=== PATIENT | male | born 1955 | race Caucasian/White ===

== ENCOUNTER 2017-09-17 18:31 | Emergency (ER) | payer OTHER ==
[~2017-09-17] VITALS: Ht 182.9 cm; Wt 65.8 kg
--- NOTE | ~2017-09-17 | EKG ---
[place] [address] [facility] [place] [address] ELECTROCARDIOGRAM REPORT Name: JOVANA VELEZ Room #: [facility]#: [id number] Admission: 09/17/17 Attend Phys: Discharge: Date of : 57 Report #: [id number] THIS REPORT FOR: //name// [facility] ED Test Date: 2017-09-17 Test Time: 18:49:27 Pat Name: JOVANA VELEZ Department: Room: Gender: Director Of Guidance: RAJAT : 1955 Requested By: Tala Braga Order Number: [id number] MD: Terrance Conklin Measurements Intervals [place] Rate: 76 P: 5 ME: 177 QRS: 22 QRSD: 106 T: 63 QT: 411 QTc: 463 Interpretive Statements Sinus rhythm Early R-wave progression No previous ECG available for comparison Electronically Signed On 09-18-2017 14:28:52 SHOE STICKS REPAIRER by Terrance Conklin [email or web address] <ELECTRONICALLY SIGNED> By: Terrance Conklin MD, [facility] 09/18/17 1428 1849 1849 Terrance Conklin MD, FACC /EPI
[2017-09-17 18:32] VITALS: BP 130/79
[2017-09-17 19:21] LABS: HEMATOCRIT 37.9 % (42.0-52.0); HEMOGLOBIN 12.7 gm/dL (14.0-18.0); MCH 28.1 pg (26.0-34.0); MCHC 33.5 g/dL (28.0-37.0); RBC 4.51 mil/uL (4.50-6.00); RDW 17.1 % (10.5-14.5); WBC 10.5 thou/uL (4.0-11.0)
[2017-09-17 19:28] LABS: ANION GAP 14 mmol/L (7-16); BUN 6 mg/dL (7-18); CALCIUM 9.2 mg/dL (8.5-10.1); CHLORIDE 106 mmol/L (98-107); CO2 22 mmol/L (21-32); CREATININE 0.6 mg/dL (0.7-1.3); GLUCOSE 92 mg/dL (74-106); POTASSIUM 4.2 mmol/L (3.5-5.1); SODIUM 142 mmol/L (136-145)
[2017-09-17 19:36] LABS: ALBUMIN 3.6 g/dL (3.4-5.0); SGOT 38 U/L (15-37); SGPT 24 U/L (30-65); TOTAL BILIRUBIN 0.6 mg/dL (<0.1-1.0); TOTAL PROTEIN 6.8 g/dL (6.4-8.2); TROPONIN-I < 0.04 ng/mL (<0.06)
[2017-09-17 20:01] LABS: ABSOLUTE NEUTROPHILS 3.8 thou/uL (1.4-8.2); ANISOCYTOSIS 1+; ATYPICAL LYMPHS 4 %
[2017-09-17 20:02] LABS: PLATELET COUNT ND thou/uL (150-400)
[2017-09-18 02:18] LABS: AMP/METHAMP Negative (Negative); BARBITURATES Negative (Negative); BENZODIAZEPINES Negative (Negative); COCAINE Negative (Negative); METHADONE Negative (Negative); OPIATES Negative (Negative); PCP Negative (Negative)
[2017-09-18 10:39] LABS: URINE BILIRUBIN NEGATIVE (Negative); URINE BLOOD TRACE (Negative); URINE CLARITY TURBID; URINE COLOR YELLOW; URINE GLUCOSE-RANDOM* NEGATIVE (Negative); URINE KETONES NEGATIVE (Negative); URINE LEUKOCYTES NEGATIVE (Negative); URINE NITRITE POSITIVE (Negative); URINE PROTEIN (DIPSTICK) TRACE (Negative); URINE SPECIFIC GRAVITY >= 1.030 (1.005-1.035); URINE UROBILINOGEN 0.2 E.U./dl (0.2-1.0)
[2017-09-18 10:40] LABS: AMORPHOUS URATES Many /LPF (None Seen)
[2017-09-18 10:41] LABS: BACTERIA 1-9 Few /HPF (None Seen); CASTS None Seen /LPF (None Seen); CRYSTALS None Seen /LPF (None Seen); SQUAMOUS 0-3 Few /LPF (0-3); URINE RBC 0-2 Rare /HPF (0-2); URINE WBC 0-5 Rare /HPF (0-5)
[2017-09-18] MEDS ORDERED: KEPPRA 500 MG500 M1 PO (14:10)
[2017-09-18] MEDS ORDERED: PRILOSEC 20 MG20 MG PO (14:11)
[2017-09-18] MEDS ORDERED: NEURONTIN 300300 M1 PO (14:11)
[2017-09-18 20:05] VITALS: BP 125/72
== END 2017-09-18 20:06 | disposition short-term general hospital (02) ==
LOC: ER 18:31 → EROBS 09-18 17:23 → ER 09-18 17:23
PROVIDERS: Emergency Medicine; Nurse Practitioner Family
DX: R45.851 Suicidal ideations (principal); N39.0 Urinary tract infection, site not specified; Z88.8 Allergy status to other drugs, medicaments and biological substances

== ENCOUNTER 2018-02-06 13:08 | Emergency (ER) | payer OTHER ==
[~2018-02-06] VITALS: Ht 185.4 cm; Wt 66.7 kg
--- NOTE | ~2018-02-06 | EKG ---
[address] [address] ELECTROCARDIOGRAM REPORT Name: JOVANA VELEZ Room #: [facility]#: [id number] Admission: 02/06/18 Attend Phys: Discharge: Date of : 57 Report #: [id number] THIS REPORT FOR: //name// [facility] ED Test Date: 2018-02-06 Test Time: 13:26:22 Pat Name: JOVANA VELEZ Department: Room: Gender: Recep: TSTORCK : 1955 Requested By: Rhoda Hilliard Order Number: [id number] MD: Yoandy Hagan Measurements Intervals [place] Rate: 56 P: 36 PA: 152 QRS: 36 QRSD: 117 T: 59 QT: 468 QTc: 452 Interpretive Statements Sinus rhythm Nonspecific intraventricular conduction delay Compared to ECG 09/17/2017 18:49:27 Intraventricular conduction delay now present Electronically Signed On 02-06-2018 15:47:26 CDT by Yoandy Hagan [email or web address] <ELECTRONICALLY SIGNED> By: Yoandy Hagan MD 02/06/18 1547 1326 1326 Yoandy Hagan MD /STAS
[~2018-02-06 13:08] MED LIST: KEPPRA 500 MG500 M1 PO; NEURONTIN 300300 M1 PO; PRILOSEC 20 MG20 MG PO
[2018-02-06 14:35] LABS: HEMOGLOBIN 11.5 gm/dL (14.0-18.0); MCH 25.4 pg (26.0-34.0); MCV 79.4 fL (80.0-100.0); PLATELET COUNT 295 thou/uL (150-400); RBC 4.53 mil/uL (4.50-6.00); RDW 22.6 % (10.5-14.5); WBC 7.2 thou/uL (4.0-11.0)
[2018-02-06 14:47] LABS: ANION GAP 10 mmol/L (7-16); BUN 11 mg/dL (7-18); CALCIUM 8.3 mg/dL (8.5-10.1); CHLORIDE 104 mmol/L (98-107); CO2 24 mmol/L (21-32); CREATININE 0.7 mg/dL (0.7-1.3); GLUCOSE 119 mg/dL (74-106); POTASSIUM 3.9 mmol/L (3.5-5.1); SODIUM 138 mmol/L (136-145)
[2018-02-06 14:49] LABS: ABSOLUTE NEUTROPHILS 3.4 thou/uL (1.4-8.2); ANISOCYTOSIS 2+; OVALOCYTES FEW
[2018-02-06 14:50] LABS: ALBUMIN 3.4 g/dL (3.4-5.0); DIRECT BILIRUBIN 0.3 mg/dL (<0.1-0.3); MAGNESIUM 1.8 mg/dL (1.8-2.4); TOTAL PROTEIN 6.9 g/dL (6.4-8.2)
[2018-02-06 14:55] LABS: TROPONIN-I < 0.04 ng/mL (<0.06)
[2018-02-06 16:03] LABS: URINE BLOOD NEGATIVE (Negative); URINE CLARITY CLEAR; URINE COLOR YELLOW; URINE GLUCOSE-RANDOM* NEGATIVE (Negative); URINE KETONES 1+ (Negative); URINE LEUKOCYTES-REFLEX NEGATIVE (Negative); URINE NITRITE-REFLEX NEGATIVE (Negative); URINE PROTEIN (DIPSTICK) NEGATIVE (Negative)
[2018-02-06 16:09] LABS: ICTOTEST (BILI CONFIRMATORY) Negative (Negative); URINE BILIRUBIN NEGATIVE (Negative)
[2018-02-06 16:10] LABS: AMP/METHAMP Negative (Negative); BARBITURATES Negative (Negative); BENZODIAZEPINES Negative (Negative); COCAINE Negative (Negative); METHADONE Negative (Negative); OPIATES Negative (Negative); PCP Negative (Negative)
[2018-02-06 18:20] VITALS: BP 123/77
== END 2018-02-06 18:20 | disposition home or self-care (01) ==
LOC: ER 13:08
PROVIDERS: Emergency Medicine
DX: F10.129 Alcohol abuse with intoxication, unspecified (principal); M54.9 Dorsalgia, unspecified; G89.29 Other chronic pain; F17.210 Nicotine dependence, cigarettes, uncomplicated; W18.30XA Fall on same level, unspecified, initial encounter; Y93.89 Activity, other specified; Y92.89 Other specified places as the place of occurrence of the external cause; Y99.8 Other external cause status

== ENCOUNTER 2018-02-28 22:22 | Emergency (ER) | payer OTHER ==
[~2018-02-28] VITALS: Ht 185.4 cm; Wt 66.7 kg
[2018-02-28] MEDS ORDERED: FOLIC ACID1 MG PO (23:15)
[2018-02-28] MEDS ORDERED: VITAMIN B-1100 M1 PO (23:16)
[2018-03-01] MEDS ORDERED: MORPHINE SULFAT15 M3 PO (00:22)
[2018-03-01 00:33] VITALS: BP 118/86
== END 2018-03-01 01:25 | disposition home or self-care (01) ==
LOC: ER 22:22
DX: S39.012A Strain of muscle, fascia and tendon of lower back, initial encounter (principal); S29.012A Strain of muscle and tendon of back wall of thorax, initial encounter; F17.210 Nicotine dependence, cigarettes, uncomplicated; Z88.8 Allergy status to other drugs, medicaments and biological substances; X58.XXXA Exposure to other specified factors, initial encounter; Y93.89 Activity, other specified; Y92.89 Other specified places as the place of occurrence of the external cause; Y99.8 Other external cause status

== ENCOUNTER 2019-10-28 06:21 | Inpatient (IN) | payer OTHER ==
[~2019-10-28] VITALS: Ht 185.4 cm; Wt 62.6 kg
--- NOTE | ~2019-10-28 | D ---
[facility] [place] [address] DISCHARGE SUMMARY Name: JOVANA VELEZ Room #: 523B-B [facility] IN M.R.#: [id number] Admission: 10/28/19 Attend Phys: Maikel Weaver DO Discharge: 10/30/19 Date of : 57 Report #: [id number] THIS REPORT FOR: cc: WALKER - Family physician unknown FAM - Family physician unknown Maikel Weaver DO ~ THIS REPORT FOR: //name// CC: Maikel CARDOSO unknown DATE OF SERVICE: 10/30/2019 INPATIENT PSYCHIATRIC DISCHARGE SUMMARY ATTENDING PSYCHIATRIST: Maikel Weaver DO GROUP EXERCISE MANAGER: Eligio Perales MD DISCHARGE DIAGNOSES: Major depressive disorder, recurrent severe by history, improved; substance use disorder for alcohol, severe, no sign of alcohol withdrawal, still in the pre-contemplation place of alcohol cessation; mild neurocognitive disorder. DISCHARGE PLAN: Discharging to his home in the [place] area. Psychiatric and general medical followup will be at the [facility]. The patient's appointments have been arranged by social work therapist as follows: 11/01/2019 at 10:00 a.m. [facility] the [facility]; 11/07/2019 at 10:[address] Perez from psychology for an appointment; 11/14/2019 at 1:00 p.m. psychiatrist appointment. DISCHARGE MEDICATIONS: Most of which were supplied by the [place], there is one change of gabapentin ____ p.o. three times a day, 30-day prescription was issued. Also, the patient ____ sucralfate 1 gram p.o. a.c. and at bedtime for chronic gastritis. The patient to continue Keppra 1500 mg p.o. b.i.d. for seizure disorder, Tamsulosin 0.4 mg p.o. daily for BPH, pantoprazole 40 mg p.o. b.i.d. for GERD, thiamine for now 100 mg p.o. daily for supplementation, Eliquis 5 mg p.o. b.i.d. for history of DVT, lipase pancreatic enzyme replacements 1 each p.o. with meals, it is called Creon, multivitamin p.o. daily, vitamin D3 at least 2000 International Units p.o. daily, folic acid 1 mg p.o. daily. PERTINENT LABORATORY DATA: This admission, CBC on 10/29/2019 shows an H and H is 11.4 and 35.5, white count 6.5, platelets 350. It just may be anemia of chronic disease; however, the patient should followup at the [place] and make sure his cancer screenings are up-to-date. Chemistries within normal limits except BUN 5, magnesium 1.7, AST 75, ALT 45, albumin 3.1, slight malnutrition. Serum [address] [address] DISCHARGE SUMMARY Name: JOVANA VELEZ Room #: 523B-B [facility] IN M.R.#: [id number] Admission: 10/28/19 Attend Phys: Maikel Weaver DO Discharge: 10/30/19 Date of : 57 Report #: [id number] alcohol level less than 10, that was 242 at [facility] for his blood alcohol level. REASON FOR ADMISSION: Sent from [facility] for concern of detox, suicidal ideation. The patient is [employer] . HOSPITAL COURSE: The patient was admitted to geriatric psychiatry unit. First, full day I saw him was morning of 10/29/2019. The patient was alert and oriented. His [facility] Mental Status Examination was 19/30. This is within range and mild cognitive impairment given his chronic drinking which he still states he drinks 2 days a week, I believe that will improve. The patient did exhibit some transient delirium during hospitalization; this was treated with p.r.n. antipsychotic. At the time of discharge, the patient was fully oriented, not suicidal or homicidal, felt to be safe for discharge to the community; however, the patient at this point will need wraparound services. Certainly if he continues to drink, he will be in danger to life threatening consequences including alcohol-related dementia. VITAL SIGNS: On the day of discharge, temperature 36.8, pulse 63, respirations 18, BP 103/60. MENTAL STATUS EXAMINATION: Ambulating with walker but kyphotic, frail appearing, still well-developed, unkempt male apparently stated age. Attention fair. Concentration fair. Speech is normal rate. Thought process linear and goal directed. Thought content, relative poverty of thought. No psychomotor agitation. Slight psychomotor retardation. Denied SI or HI. Denied hopelessness, helplessness. Denied auditory, visual, or tactile hallucinations. Memory not formally tested today, but known to be impaired. Insight limited. Judgment fair to limited. Fund of knowledge below average. PROGNOSIS: For this patient is guarded given him having mild neurocognitive disorder, alcoholism, substance use disorder for alcoholism of severe type, history of major depression, currently living single. His son is also aware of but forgot to mention that the patient received a possible eviction notice which triggered his drinking binge and his acute suicidality when he was brought to the [facility]. By: 56 13 Maikel Weaver DO /nt
[~2019-10-28 06:21] MED LIST changes: +FOLIC ACID1 MG PO; +MORPHINE SULFAT15 M3 PO; +VITAMIN B-1100 M1 PO
[2019-10-28] MEDS ORDERED: CHILDREN'S ASPI81 M1 PO (07:13)
[2019-10-28] MEDS ORDERED: IPRAT-ALBUT 0.5-3 ML IH (07:15)
[2019-10-28] MEDS ORDERED: FLOMAX0.4 MG PO (07:16)
[2019-10-28] MEDS ORDERED: LIDODERM1 EACH TOP (07:20)
[2019-10-28] MEDS ORDERED: PROTONIX40 M2 PO (07:21)
[2019-10-28] MEDS ORDERED: CARAFATE1 GM/10 ML PO (07:22)
[2019-10-28] MEDS ORDERED: LOPERAMIDE 2 MG2 M1 PO (07:23)
[2019-10-28 09:20] VITALS: BP 90/64
[2019-10-28] MEDS ORDERED: PRILOSEC OTC20 MG PO (12:05)
[2019-10-28] MEDS ORDERED: UROXATRAL PO (12:08)
[2019-10-28] MEDS ORDERED: VITAMIN B-1100 M2 PO (12:09)
[2019-10-28] MEDS ORDERED: ELIQUIS5 MG PO (12:10)
[2019-10-28] MEDS ORDERED: IBU800 MG PO (12:12)
[2019-10-28] MEDS ORDERED: CREON DR 36,001 EACH PO (12:13)
[2019-10-28] MEDS ORDERED: ATORVASTATIN CA80 MG PO (12:14)
[2019-10-28] MEDS ORDERED: SUPER THERAVIT1 EACH PO (12:15)
[2019-10-28] MEDS ORDERED: DIFICID200 MG PO (12:20)
[2019-10-28] MEDS ORDERED: FERROUS SULFAT324 M1 PO (12:22)
[2019-10-28] MEDS ORDERED: VITAMIN D31250 MC1 PO (12:24)
[2019-10-28] MEDS ORDERED: FOLIC ACID1 MG PO (12:25)
[2019-10-28] MEDS ORDERED: REVIA 50 MG TAB50 M1 PO (12:30)
[2019-10-28] MEDS ORDERED: MAGIC MOUTHWASH SWISH&SPIT (12:42)
[2019-10-28] MEDS ORDERED: LIDOCAINE VISC100 ML PO (12:45)
--- NOTE | 2019-10-28 14:35 | NUR ---
Sw met with pt to complete the intake assessment and tp. This included discussing getting help for his substance use disorder. Pt reported that this was self medicating and about his physical pain and " there is nothing wrong with my head." Pt reports that he has a cabby that takes him to [facility] and his son helps pay the bills. [facility]. He has had several attempts at AL. he would like to return home but is afrid he is going to be evicted. Pt reports that his rent was late and has asked his son to pay it and find the brink he has hidden in his apartment. Sw suggested [facility] for wrap around services. Pt erports that the [facility] was supposed to create CM for him. Sw will attempt to reach both agencies for the d/c plan. Sw will alos call and collaborte with this pt's DPOA Bc .
--- NOTE | 2019-10-28 15:43 | NUR ---
Kalli called and left a VM with Bc
--- NOTE | 2019-10-28 17:01 | NUR ---
RECIEVED PATIENT A DIRECT ADMIT FROM [facility] AT 0850 VIA EMS ON A CART. PATIENT TRANSFERED TO BED WITHOUT DIFFICULTY. 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 PATIENT STATED HE WAS DEPRESSED DUE TO RECIEVING AN EVICTION NOTICE AFTER SON FAILED TO PAY RENT. PATIENT STATES LIVING IN HIS APARTMENT X 3 YEARS AND WAS REAL DEPRESSED. PATIENT IS CALM AND COOPERATIVE. C/O CHRONIC PAIN TO RT HIP DUE TO BROKEN HIP THAT OCCURED 3 WKS AGO. ALSO STATES SLIGHT CHEST DISCOMFORT DUE HX OF ESOPHAGITIS. PATIENT DENIES SI/HI AND AVH STATES "I KNOW I DRANK TO MUCH BUT I WAS UPSET ABOUT LOOSING MY APARTMENT". LUNG SOUNDS CLEAR, BS NOTED X4, A+O X4. PATIENT STATED HAVING A SIEZURE DISORDER LAST SIEZURE WAS 1WK AGO. USES BRACE TO RIGHT FOOT WHEN USING CANE, DOES NOT NEED CANE WHEN USING WALKER. PATIENT CONCERN IS LOOSING HIS APARTMENT AND NEEDING TO FIND THE RIVERO TO HIS APARTMENT AND BILLFOLD. RIVERO FOUND IN [place]. BILLFOLD NOT FOUND. RESEARCH CALLED FOR BILLFOLD AND THEY SAID THEY DO NOT HAVE HIS BILLFOLD. PATIENT GOAL IS TO GET OUT POSSIBLY TOMORROW DUE TO HE IS GOOD AND NOT CRAZY. PATIENT VOICED BEING HUNGRY, PATIENT AMBULATED TO DAYROOM USING WALKER, YELLOW SOCKS IN PLACE. PATIENT ATE LITTLE EGGS AND HAD SOME COFFEE. PATIENT VOMITED APPROX 200CC OF BROWN COLOR FLUID. PATIENT STATES NEED TO HAVE GI COCTAIL AND MYLANTA 30 MIN BEFORE MEALS SO I DON'T VOMIT. DR PRADO HERE TO SEE PATIENT, DR REVIEWED PAPERWORK. PT DENIES HEADACHE, NO TREMORS NOTED, SLIGHT IRRITATION UPSET WITH HIS MEDS AND THAT SAY ONE THING AND DON'T FOLLOW THROUGH. DR. PRADO DIDN'T ORDER A CIWA PROTOCOL. WILL CONTINUE TO MONITOR. PT DID SAY HE WANTED TO LEAVE TOMMORROW THAT HE HAS MEDICAL ISSUES, NOT CRAZY AND DOESN'T NEED TO BE HERE.
--- NOTE | 2019-10-28 17:59 | NUR ---
1700 PATIENT REFUSED MEDS sTATES "i AM GOING HOME TOMORROW, I DO NOT HAVE A PSYCH PROBLEM". ALSO SAYS HE WILL NOT TAKE AM MEDS TOORROW. PATIENT TO ROOM USING WALKER AT THIS TIME. ATE DINER WITHOUT C/O NAUSEA OR VOMITING.
[2019-10-28 19:56] VITALS: BP 109/59
--- NOTE | 2019-10-28 21:27 | NUR ---
ASSUMED CARE AT 1915, PATIENT IS ALERT AND ORIENTED X4, UPON ONE TO ONE WITH PATIENT HE APPEARS WITH A TENSE AFFECT, CHOUDHARY LANGUAGE TOWARDS THIS NURSE. HE CONTINUOUSLY STATES ' I DONT NOT NEED TO BE HERE THIS IS FUCKING STUPID.' THIS NURSE ATTEMPTED TO DISCUSS SITUATION WITH PATIENT, UNFORTUNATELY NEEDING TO PUT STRICT LIMITATIONS ON HOW TO BE TREATED BY PATIENT AND VICE VERSA. HE SEEMLINGLY AGREED TO THESE RULES THEN STATED 'ILL JUST SHOVE MY HAND UP YOUR ASS, YOU ASSHOLE.' HE DENIES FEELINGS OF DEPRESSION, ANXIETY, SI HI. HE DID QUESTION THIS NURSE ON HOW I WAS AWARE OF PATIENTS MEDICAL HX AND APPEARED PARANOID. HE DENIED MEDICAL CONCERNS WITH NO S/S OF DISTRESS. NURSING WILL MAINTAIN ALL PRECAUTIONS TO ENSURE SAFETY AT ALL TIMES.
[2019-10-29 07:22] LABS: HEMATOCRIT 35.6 % (42.0-52.0); HEMOGLOBIN 11.4 gm/dL (14.0-18.0); MCH 27.4 pg (26.0-34.0); MCHC 32.1 g/dL (28.0-37.0); MCV 85.3 fL (80.0-100.0); RBC 4.17 mil/uL (4.50-6.00); RDW 21.9 % (10.5-14.5); WBC 6.5 thou/uL (4.0-11.0)
--- NOTE | 2019-10-29 07:30 | NUR ---
Assumed care of patient this am. Patient concerned about his scheduled times that he takes his medications. Patient voiced that he was not pleased with his care on the prior shift. Patient is very irritable. Patients affect is variable. Patient ambulates with walker. Patient takes medications crushed. Patient denies pain. Patient denies hi/si. Patients assessment shows clear breath sounds, active bowel sounds, and s1 s2 heard with auscultation.
[2019-10-29 07:56] LABS: ALBUMIN 3.1 g/dL (3.4-5.0); CREATININE 0.7 mg/dL (0.7-1.3); MAGNESIUM 1.7 mg/dL (1.8-2.4); POTASSIUM 4.4 mmol/L (3.5-5.1); TOTAL BILIRUBIN 0.5 mg/dL (<0.1-1.0); TOTAL PROTEIN 6.7 g/dL (6.4-8.2)
[2019-10-29 08:00] VITALS: BP 109/59
--- NOTE | 2019-10-29 09:29 | NUR ---
RENA called Bc kina/ROBERT [phone] and left another VM requesting a call back
--- NOTE | 2019-10-29 11:04 | NUR ---
Kalli called [facility] [phone] and left a VM for Oliver Cad Intern regarding the services this pt will need at D/C. Per treatment team meeting this pt will d/c tomorrow to home.
--- NOTE | 2019-10-29 14:51 | NUR ---
Kalli called and left another VM to Oliver West at the [facility] and reported that this pt would be discharging tomorrow to home. Kalli called and spoke with Bc and he stated that this pt still had his apartment and that he wouold be unavailable to help with transportatioon. Kalli will set this pt up with a cab voucher for tomorrow.
[2019-10-29 20:17] VITALS: BP 95/52
--- NOTE | 2019-10-30 01:48 | NUR ---
Care assumed of patient at 1915: Patient resting in bed at start of shift. Patient easily aroused. Patient easily irritable. Patient did request a cup of coffee from staff. Patient educated that it was too late to have a cup of coffee. Offered juice, milk or water. Patient argumentative and settled for a cup of water. Patient alert and oriented x4. Patient reports that he is excited about going home 10/30/19. States that he will "try" to not drink "as much". Educated patient about local AA meetings. Patient became irritable and said he could quit if he wanted to, by himself. Patient irritable about medication stating he takes Keppra at 7am and 7pm everyday and the doctors keep messing up the schedule. Educated patient that he is receiving them BID at 9am and 9pm. Patient insists that this is not correct. Multiple complaints made about the staff, doctors, medications, patients, food. Despite any education and reassurance provided, patient remains unsatisfied. Patient did take HS medication crushed with water. Patient did report pain to left upper quadrant. Provided PRN Tylenol. Patient sleeping at follow up. Patient denies SI/HI/AH/VH. No delusional or paranoia behaviors observed. Labile affect noted. Speech clear and organized. Patient was able to fall to sleep without difficulty and has been resting quietly.
[2019-10-30 07:45] VITALS: BP 103/60
[2019-10-30 08:48] VITALS: BP 103/60
--- NOTE | 2019-10-30 08:53 | NUR ---
KALLI spoke with pt and he is ready to d/c. KALLI will set up transportation with a cab voucher for 11am. Kalli spoke with Radha THAYER at the NH and the following appt are available for this pt at the [facility] clinic 11/01 at 10 am Nursing 11/07 at 10:[address] Anne Psychology phone appt 11/14 at 1PM with psychiatrict Kalli faxed the d/c summary and orders to [phone]. Kalli provided pt with these dates and times and encouraged him to keep these appts. Kalli also provided pt with the NH sucicie hotline number [phone]. Kalli reported this to Dr campbell and nursing.
[2019-10-30] MEDS ORDERED: NEURONTIN 400M400 M2 PO (09:36)
[2019-10-30] MEDS ORDERED: CARAFATE 1 GM TA1 G1 PO (09:36)
[2019-10-30 10:27] VITALS: BP 103/60
--- NOTE | 2019-10-30 11:50 | NUR ---
DISCHARGE INSTRUCTIONS REVIEWED WITH PT-HE STATES UNDERSTANDING AND DENIES QUESTIONS/CONCERNS RE MEDS AND FOLLOW UP APPOINTMENTS HE DENIES QUESTIONS. DENIES SI/SH/HI AT TIME OF DC-IRRITABLE AFFECT AT TIME OF DC REGARDING UNIT RULES AND STRUCTURE-STATES HE PLANS TO FU WITH VA-"AT LEAST THEY LET ME HAVE COFFEE WHEN I WANT IT" PERSONAL BELONGINGS SENT WELL SEVERAL BAGS OF HOME MEDS. DC VIA WC TO [facility] WITH PLANS TO RETURN HOME
== END 2019-10-30 11:10 | disposition home or self-care (01) | DRG 885 ==
LOC: SBH 06:21
PROVIDERS: Internal Medicine; ADMIT Psychiatry & Neurology Psychiatry
DX: F33.2 Major depressive disorder, recurrent severe without psychotic features (principal); F10.94 Alcohol use, unspecified with alcohol-induced mood disorder; Y90.0 Blood alcohol level of less than 20 mg/100 ml; G89.29 Other chronic pain; I10 Essential (primary) hypertension; I65.29 Occlusion and stenosis of unspecified carotid artery; M54.40 Lumbago with sciatica, unspecified side; K46.9 Unspecified abdominal hernia without obstruction or gangrene; K21.0 Gastro-esophageal reflux disease with esophagitis; F17.210 Nicotine dependence, cigarettes, uncomplicated; Z79.82 Long term (current) use of aspirin; Z79.899 Other long term (current) drug therapy
CPT/HCPCS: 10880

== ENCOUNTER 2020-05-20 02:41 | Emergency (ER) | payer OTHER ==
[~2020-05-20] VITALS: Ht 185.4 cm; Wt 63.5 kg
[~2020-05-20 02:41] MED LIST changes: +ATORVASTATIN CA80 MG PO; +CARAFATE 1 GM TA1 G1 PO; +CARAFATE1 GM/10 ML PO; +CHILDREN'S ASPI81 M1 PO; +CREON DR 36,001 EACH PO; +DIFICID200 MG PO; +ELIQUIS5 MG PO; +FERROUS SULFAT324 M1 PO; +FLOMAX0.4 MG PO; +IBU800 MG PO; +IPRAT-ALBUT 0.5-3 ML IH; +LIDOCAINE VISC100 ML PO; +LIDODERM1 EACH TOP; +LOPERAMIDE 2 MG2 M1 PO; +MAGIC MOUTHWASH SWISH&SPIT; +NEURONTIN 400M400 M2 PO; +PRILOSEC OTC20 MG PO; +PROTONIX40 M2 PO; +REVIA 50 MG TAB50 M1 PO; +SUPER THERAVIT1 EACH PO; +UROXATRAL PO; +VITAMIN B-1100 M2 PO; +VITAMIN D31250 MC1 PO
[2020-05-20 04:56] VITALS: BP 127/77
== END 2020-05-20 05:20 | disposition home or self-care (01) ==
LOC: ER 02:41
DX: R56.9 Unspecified convulsions (principal); R25.2 Cramp and spasm; K21.9 Gastro-esophageal reflux disease without esophagitis; F17.210 Nicotine dependence, cigarettes, uncomplicated; Z79.899 Other long term (current) drug therapy; Z88.8 Allergy status to other drugs, medicaments and biological substances; W19.XXXA Unspecified fall, initial encounter; Y93.89 Activity, other specified; Y92.89 Other specified places as the place of occurrence of the external cause; Y99.8 Other external cause status

== ENCOUNTER 2020-06-01 08:38 | Inpatient (IN) | payer OTHER ==
[~2020-06-01] VITALS: Ht 175.3 cm; Wt 68.0 kg
[2020-06-01 08:39] VITALS: BP 149/100
[2020-06-01 10:02] LABS: HEMATOCRIT 35.1 % (42.0-52.0); HEMOGLOBIN 11.2 gm/dL (14.0-18.0); MCH 25.6 pg (26.0-34.0); MCHC 31.9 g/dL (28.0-37.0); MCV 80.4 fL (80.0-100.0); PLATELET COUNT 289 thou/uL (150-400); RBC 4.37 mil/uL (4.50-6.00); RDW 23.9 % (10.5-14.5); WBC 12.9 thou/uL (4.0-11.0)
[2020-06-01 10:08] LABS: ANION GAP 14 mmol/L (7-16); BUN 7 mg/dL (7-18); CHLORIDE 96 mmol/L (98-107); CO2 29 mmol/L (21-32); CREATININE 0.8 mg/dL (0.7-1.3); GLUCOSE 103 mg/dL (74-106); POTASSIUM 3.2 mmol/L (3.5-5.1); SODIUM 139 mmol/L (136-145)
[2020-06-01 10:18] LABS: DIRECT BILIRUBIN 0.9 mg/dL (<0.1-0.2); LIPASE 62 U/L (73-393); SGOT 52 U/L (15-37); SGPT 23 U/L (30-65); TOTAL BILIRUBIN 3.1 mg/dL (0.2-1.0); TOTAL PROTEIN 6.9 g/dL (6.4-8.2); TROPONIN-I <0.06 ng/mL (<0.06)
[2020-06-01 11:59] LABS: ABSOLUTE NEUTROPHILS 11.7 thou/uL (1.4-8.2); OVALOCYTES FEW
[2020-06-01 12:01] LABS: ANISOCYTOSIS 2+
[2020-06-01 13:52] LABS: URINE BLOOD TRACE (Negative); URINE CLARITY CLEAR; URINE COLOR YELLOW; URINE GLUCOSE-RANDOM* NEGATIVE (Negative); URINE KETONES 1+ (Negative); URINE LEUKOCYTES-REFLEX NEGATIVE (Negative); URINE NITRITE-REFLEX NEGATIVE (Negative); URINE PROTEIN (DIPSTICK) NEGATIVE (Negative)
[2020-06-01 14:02] LABS: ICTOTEST (BILI CONFIRMATORY) Negative (Negative); URINE BILIRUBIN NEGATIVE (Negative)
[2020-06-01 14:05] VITALS: BP 136/84
[2020-06-01 15:54] VITALS: BP 110/62
[2020-06-01 16:28] VITALS: BP 117/87
[2020-06-01 17:05] VITALS: BP 133/74
--- NOTE | 2020-06-01 19:24 | NUR ---
PATIENT ARRIVED FROM ED VIA STRECHER, ALERT AND ORIENTED X4 AND FORGETFUL. ST ON THE MONITOR. ADMISSION COMPLETED, AND POC INITIATED.
[2020-06-01 20:19] VITALS: BP 127/80
--- NOTE | 2020-06-02 02:36 | NUR ---
A/O X 3.CIWA SCORE IS 9.ATIVAN GIVEN.COMPLAIN OF PAIN.MORPHINE GIVEN.PT SLEPT.MONITOR SHOWS SINUS TACHY.POC CONTINUED.
[2020-06-02 04:14] LABS: HEMATOCRIT 31.4 % (42.0-52.0); HEMOGLOBIN 10.1 gm/dL (14.0-18.0); MCH 26.6 pg (26.0-34.0); MCHC 32.1 g/dL (28.0-37.0); MCV 82.7 fL (80.0-100.0); RBC 3.79 mil/uL (4.50-6.00); RDW 23.4 % (10.5-14.5); WBC 9.6 thou/uL (4.0-11.0)
[2020-06-02 04:26] LABS: CALCIUM 7.9 mg/dL (8.5-10.1); CREATININE 0.8 mg/dL (0.7-1.3); POTASSIUM 3.5 mmol/L (3.5-5.1)
[2020-06-02 05:08] VITALS: BP 119/74
[2020-06-02 08:05] VITALS: BP 116/66
--- NOTE | 2020-06-02 08:10 | EKG ---
[facility] [place] [address] ELECTROCARDIOGRAM REPORT Name: JOVANA VELEZ Room #: 207-P ADM IN M.R.#: [id number] Admission: 06/01/20 Attend Phys: Ra De Leon MD Discharge: Date of : 57 Report #: [id number] THIS REPORT FOR: cc: [facility] - Clinic physician unknown [facility] - Clinic physician unknown Yoandy Hagan MD ~ THIS REPORT FOR: //name// [facility] ED Test Date: 2020-06-01 Test Time: 08:45:05 Pat Name: JOVANA VELEZ Department: Room: [facility] Gender: M Founder: ESHEETS : 1955 Requested By: Bernie Manning Order Number: [id number] MD: Yoandy Hagan Measurements Intervals [place] Rate: 114 P: 68 OK: 168 QRS: 35 QRSD: 96 T: 66 QT: 343 QTc: 473 Interpretive Statements Sinus tachycardia Compared to ECG 02/06/2018 13:26:22 Sinus rhythm no longer present Intraventricular conduction delay no longer present Electronically Signed On 06-02-2020 8:10:02 CDT by Yoandy Hagan [email or web address] <ELECTRONICALLY SIGNED> By: Yoandy Hagan MD 06/02/2010 Yoandy Hagan MD /EPI
[2020-06-02 11:35] VITALS: BP 125/82
[2020-06-02 15:50] VITALS: BP 112/69
--- NOTE | 2020-06-02 18:20 | NUR ---
ASSESSMENT DOCUMNETED, CIWA AT 9, MEDICATED INDICATED, AND VSS. NPO AFTER MN FOR EGD IN THE AM. AND WILL CONTINUE WITH CURRENT POC.
[2020-06-02 20:48] VITALS: BP 96/58
[2020-06-03 00:16] VITALS: BP 98/63
[2020-06-03 05:05] LABS: HEMATOCRIT 29.1 % (42.0-52.0); HEMOGLOBIN 9.4 gm/dL (14.0-18.0); MCH 26.8 pg (26.0-34.0); MCHC 32.4 g/dL (28.0-37.0); MCV 82.8 fL (80.0-100.0); RBC 3.52 mil/uL (4.50-6.00); RDW 23.4 % (10.5-14.5); WBC 6.3 thou/uL (4.0-11.0)
[2020-06-03 05:25] LABS: ALBUMIN 2.4 g/dL (3.4-5.0); CALCIUM 7.8 mg/dL (8.5-10.1); CREATININE 0.6 mg/dL (0.7-1.3); TOTAL BILIRUBIN 1.2 mg/dL (0.2-1.0); TOTAL PROTEIN 5.6 g/dL (6.4-8.2)
[2020-06-03 05:34] VITALS: BP 134/92
[2020-06-03 07:45] VITALS: BP 131/81
[2020-06-03 11:10] VITALS: BP 132/88
--- NOTE | 2020-06-03 11:29 | NUR ---
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 He has [employer] insurance he reports paramedics took him to closest hospital. He goes to [facility] in [place]. Cannot recall if PCP is Dr Jones or Dr Cabrales. patient with hx of SBU here at [facility] in Oct. Patient evaled by [facility] and accepted once stable and if rec auth. Patient agreeable to [facility] once stable.
[2020-06-03 15:50] VITALS: BP 131/98
[2020-06-03 18:06] LABS: FOLIC ACID 11.5 ng/mL (8.6-58.9)
--- NOTE | 2020-06-03 18:20 | NUR ---
RECEIVED PT'S CARE AROUND 0720; PT. ON BED; RESTING WITH EYES CLOSED; SR ON THE MONITOR; DURING AM ASSESSMENT PT. AOX4; FORGETFUL; NPO; KEPPRA GIVEN; GONE FOR PROCEDURE AROUND 0830; BACK FROM PROCEDURE AROUND 1000; PER GI PT. ABLE TO ADVANCE DIET TO HH; IV FLUIDS D/C; PRN PO PAIN MEDICATION GIVEN; EDUCATED ABOUT IT; REQUESTED THREE CUPS OF COFFEE; ST ON THE MONITOR; EDUCATED ABOUT LIMITING COFFEE; NO ANSWER BACK; DURING THE EVENING PT. SHOWED TREMORS & ST. FEELING SOME ANXIETY; PRN LORAZEPAM GIVEN; POTASSIUM REPLACED; ASSESSMENT CHARGED; FOLLOWING POC; WILL PASS ON REPORT;
[2020-06-03 20:07] VITALS: BP 115/76
--- NOTE | 2020-06-04 05:06 | NUR ---
ASSUMED CARE OF PATIENT AT 1900. SEIZURE PRECAUTIONS REMAIN IN PLACE. AT INITIAL ASSESSMENT PATIENT C/O THROAT/CHEST PAIN. ADMINISTERED PRN PAIN MEDICATION AND LORAZEPAM. RECENT CIWA SCORE WAS A 4. PATIENT ANXIOUS/RESTLESS AND DID NOT APPEAR TO SLEEP WELL THROUGH THE NOC.
[2020-06-04 05:27] VITALS: BP 128/86
[2020-06-04 08:10] VITALS: BP 130/84
[2020-06-04 11:48] VITALS: BP 102/73
--- NOTE | 2020-06-04 13:16 | NUR ---
5n cont to eval they have not accepted patient at this time. They have not sought auth at this time. Plan to review how patient does with therapy in am.
[2020-06-04 15:23] VITALS: BP 112/69
--- NOTE | 2020-06-04 16:42 | NUR ---
PT CARE ASSUMED APPROX 1000. ASSESSMENTS CHARTED. PT DENIES SOA, N/V. REPORTS ADEQUATE PAIN MANAGEMENT OF EPIGASTRIC AND RLE PAIN. VSS. PT TOLERATING POC. NO DISTRESS NOTED.
[2020-06-04 19:40] VITALS: BP 121/72
[2020-06-05 03:30] VITALS: BP 124/77
--- NOTE | 2020-06-05 04:19 | NUR ---
Assumed pt care at 1900. Pt is alert and oriented. No sign of distress noted noted in pt. Continously verbalizes pain. Fall precaution in place. Pt requesting for pain medication. Assessement completed and documented. Scheduled meds administered to pt, tolerated PO intake. No acute events overnight. No further needs at this time
[2020-06-05 07:43] VITALS: BP 121/78
--- NOTE | 2020-06-05 09:36 | NUR ---
BROKE BEATER OPERATOR SPOKE WITH [facility] MARKETING FINANCE MANAGER THIS DATE. PATIENT UNDERSTANDS 3 HOUR THERAPY REQUIREMENT AND IS HOPING THAT AUTH CAN BE OBTAINED FROM [place] FOR ACUTE REHAB ADMISSION. AUTHORIZATION REQUEST WILL BE SENT THIS DATE TO GATITO Gomes AT THE COMMUNITY CARE OFFICE OF THE [facility]. [phone] (FAX)
[2020-06-05 11:18] VITALS: BP 129/72
--- NOTE | 2020-06-05 12:07 | PATH ---
[facility] [address] [place] [address] PATHOLOGY RPT PROCEDURE Name: GIL VELEZ Room #: 207-P [facility] IN M.R.#: [id number] Admission: 06/01/20 Date of : 57 Discharge: Report #: [id number] Path Case #: [id number] [facility] Accession Number: [id number] . 01 Material submitted: . esophagus - BX'S DISTAL ESOPHAGUS. Modifiers: distal . 01 Clinician provided ICD-10: A41.9 F10.239 . 01 Clinical history: . ESOPHAGITIS AT ESOPHAGEAL MASS, SEPSIS, UNSPECIFIED ORGANISM, ALCOHOL DEPENDENCE WITH WITHDRAWAL, N/V CHEST PAIN . 02 Diagnosis: Gastroesophageal mucosa, distal esophagus, endoscopic biopsy: - Gastric fundic-type mucosa with moderate chronic inflammation along with reactive changes. - No definite intestinal metaplasia or dysplasia identified. - Focal squamous mucosa with mild active esophagitis and associated ulceration. (IUV:pit 06/04/2020) QTP 06/04/2020 1013 Local . 02 Comment: A GMS fungal special stain is ordered on block A1 and it shows no definitive fungal hyphal or yeast elements. (IUV:pit 06/04/2020) . 02 Electronically signed: . Terese Mccain MD, Pathologist NPI- [id number] . 01 Gross description: . The specimen is received in formalin, labeled "Gil Velez, biopsies distal esophagus". Received are multiple segments of pale rudolph soft tissue ranging in size from 0.2 to 0.4 cm in maximum dimensions. The specimen is submitted entirely in cassette A1. (CAA; 06/03/2020) QAC/QAC 06/03/2020 1703 Local . 02 Pathologist provided ICD-10: K20.9, K22.10 . 02 CPT . [id number], [id number] [address] [address] PATHOLOGY RPT PROCEDURE Name: GIL VELEZ Room #: 207-P [facility] IN .R.#: [id number] Admission: 06/01/20 Date of : 57 Discharge: Report #: [id number] Path Case #: [id number] Specimen Comment: A courtesy copy of this report has been sent to [phone], [phone]- Specimen Comment: [id number] Specimen Comment: Report sent to / DR MCELROY Performed at: [address], [place], [place] [id number] MD Abhinav Allen MD Phone: [phone] Performed at: [address] [id number] MD Terese Mccain MD Phone: [phone]
[2020-06-05 15:47] VITALS: BP 136/72
--- NOTE | 2020-06-05 16:22 | NUR ---
PT CARE ASSUMED APPROX 0700. ASSESSMENTS CHARTED. PT DENIES SOA, N/V. REPORTS ADEQUATE PAIN MANAGEMENT AFTER INTERVENTIONS AND POC. TOLERATING POC. NO DISTRESS NOTED. PT CARE TRANSFERRED TO ANOTHER RN AT THIS TIME. SHE DENIES QUESTIONS OR CONCERNS REGARDING PT POC.
[2020-06-05 20:55] VITALS: BP 111/70
--- NOTE | 2020-06-06 03:54 | NUR ---
Assumed pt care at 1900. Pt is alert and oriented. No sign of distress noted in pt. Pt continues to verbalize pain. Fall precaution in place. Pt had a bowel movement. Assessment completed and documented. Scheduled meds administered to pt. Tolerated PO intake. No acute events overnight. Continue to monitor patient. Anticipating discharge. No needs at this time.
[2020-06-06 04:45] VITALS: BP 154/52
[2020-06-06 08:00] VITALS: BP 111/67
[2020-06-06 11:39] VITALS: BP 106/80
[2020-06-06] MEDS ORDERED: CIPRO500 M1 PO (15:09)
[2020-06-06] MEDS ORDERED: IPRAT-ALBUT 0.5-3 ML INH (15:09)
[2020-06-06] MEDS ORDERED: FLAGYL500 M1 PO (15:09)
--- NOTE | 2020-06-06 15:54 | NUR ---
PT CARE ASSUMED APPROX 0715. ASSESSMENTS CHARTED. PT DENIES SOA, N/V. REPORTS ADEQUATE PAIN MANAGEMENT OF ESOPHAGEAL AND RLE PAIN. VSS. DISCHARGING TO REHAB THIS SHIFT. PT AGREEABLE. ATTEMPT MADE TO CALL REPORT TO RECEIVING NURSE ON REHAB UNIT. AWAITING CALL BACK FROM RN AT THIS TIME. PT DENIES QUESTIONS OR CONCERNS REGARDING POC OR TRANSFER. TELE OFF. WILL TRANSFER TIMELY.
--- NOTE | 2020-06-06 16:43 | NUR ---
REPORT WAS CALLED TO REHAB NURSE. PT ESCORTED OFF UNIT A MOMENT AGO. NO DISTRESS NOTED.
== END 2020-06-06 16:34 | DRG 871 ==
LOC: ER 08:38 → 2N 12:27 → EROBS 12:27 → 2N 16:39
PROVIDERS: Emergency Medicine; Nurse Practitioner; Nurse Practitioner Family; ADMIT Hospitalist; ATTEND Hospitalist
PROC: 0DB38ZX Excision of Lower Esophagus, Via Natural or Artificial Opening Endoscopic, Diagnostic (ICD-10-PCS; principal; 2020-06-03)
DX: A41.9 Sepsis, unspecified organism (principal); E43 Unspecified severe protein-calorie malnutrition; F10.239 Alcohol dependence with withdrawal, unspecified; K70.10 Alcoholic hepatitis without ascites; K52.89 Other specified noninfective gastroenteritis and colitis; K20.8 Other esophagitis; Z20.828 Contact with and (suspected) exposure to other viral communicable diseases; G89.29 Other chronic pain; F32.9 Major depressive disorder, single episode, unspecified; K21.9 Gastro-esophageal reflux disease without esophagitis; I10 Essential (primary) hypertension; M54.5 Low back pain; K80.20 Calculus of gallbladder without cholecystitis without obstruction; F17.210 Nicotine dependence, cigarettes, uncomplicated; G40.909 Epilepsy, unspecified, not intractable, without status epilepticus; M54.32 Sciatica, left side; K44.9 Diaphragmatic hernia without obstruction or gangrene; K29.70 Gastritis, unspecified, without bleeding; M54.10 Radiculopathy, site unspecified; Z88.8 Allergy status to other drugs, medicaments and biological substances; Z86.711 Personal history of pulmonary embolism; Z87.11 Personal history of peptic ulcer disease; Z80.0 Family history of malignant neoplasm of digestive organs; Z65.8 Other specified problems related to psychosocial circumstances; Z79.899 Other long term (current) drug therapy
CPT/HCPCS: 10081; 62110; 62900; 70005

== ENCOUNTER 2020-06-06 14:48 | Inpatient (IN) | payer OTHER ==
[~2020-06-06] VITALS: Ht 185.4 cm; Wt 66.7 kg
--- NOTE | ~2020-06-06 | PLAN ---
[facility] [place] [address] REHAB UNIT PLAN OF CARE Name: JOVANA VELEZ Room #: 504-1 ADM IN M.R.#: [id number] Admission: 06/06/20 Attend Phys: Hamilton Tello MD Discharge: Date of : 57 Report #: [id number] THIS REPORT FOR: //name// CC: Hamilton Tello [facility] unknown DATE OF SERVICE: 06/09/2020 PROGRESS NOTE/OVERALL PLAN OF CARE SUBJECTIVE: The patient is seen back today in followup. He is in no distress. Last recorded temperature is 36.8, pulse 77, respirations 20, blood pressure 111/74. He had an episode over the weekend where he was feeling weak with lower blood pressure and he was given some IV hydration. He is feeling better this morning. We are monitoring him regarding nausea. Functionally, he transfers with standby assistance and gait is contact guard 30 feet with a front-wheeled walker. In occupational therapy, lower body dressing is max assist, upper body dressing is supervision. ASSESSMENT: This is a 65-year-old white male with the following problem list: 1. Right lower extremity radiculopathy with sciatica with right lower extremity weakness. 2. Functional mobility and ADL deficits. 3. Generalized weakness and debilitation. 4. Sepsis secondary to colitis and severe esophagitis. 5. 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 6. History of ETOH withdrawal and dependence. 7. Seizure disorder. 8. History of pulmonary embolism. 9. Some decreased in blood pressure over the weekend, given IV hydration. PLAN: I encouraged him to drink regular water instead of coffee to try to help maintain his hydration status. The overall plan of care is based on the preadmission screen, post-admission physician evaluation and information garnered from therapy assessments. 1. Estimated length of stay is probably 7-10 days. 2. Medical prognosis is reasonably good. 3. Anticipated interventions includes the interdisciplinary acute inpatient rehabilitation program. 4. Anticipated functional outcomes would be for the patient to become modified independent with transfers, mobility, ADLs, so he can hopefully return back to his prior living situation. 5. Discharge destination would be back to the home setting. He does live in a motel, but has a son involved and they are looking at assisted living options as well. He does not have any stairs into the motel. 6. Expected therapy by discipline includes PT and OT 1-1/2 [place] [address] REHAB UNIT PLAN OF CARE Name: JOVANA VELEZ Room #: 504-1 ADM IN [facility]#: [id number] Admission: 06/06/20 Attend Phys: Hamilton Tello MD Discharge: Date of : 57 Report #: [id number] five days a week throughout the duration of the acute inpatient rehabilitation stay. By: [id number] [place] Tello MD /PMT
--- NOTE | ~2020-06-06 | H ---
[facility] [place] [address] HISTORY AND PHYSICAL Name: JOVANA VELEZ Room #: 504-1 ADM IN M.R.#: [id number] Admission: 06/06/20 Attend Phys: Hamilton Tello MD Discharge: Date of : 57 Report #: [id number] THIS REPORT FOR: cc: [facility] - Clinic physician unknown [facility] - Clinic physician unknown Hamilton Tello MD ~ CC: Hamilton Tello [facility] unknown DATE OF SERVICE: 06/07/2020 HISTORY AND PHYSICAL/POST ADMISSION PHYSICIAN EVALUATION HISTORY OF PRESENT ILLNESS: The patient is 65-year-old white male who was originally admitted to [facility] on 05/31/2020 with abdominal pain and diarrhea. He was admitted and found to have a lactic acid of 5.5, tachycardia, tremors, diagnosed with sepsis due to colitis. GI was consulted and he had an EGD that revealed severe esophagitis and gastritis. Biopsies were taken. He was placed on a PPI and IV Levaquin and Flagyl. He has a prior history of right lower extremity severe sciatica with weakness and pain and he has worn a Cam boot orthotic for it for the past 2 years. He also has a history of ETOH abuse and has been receiving Ativan previous to his rehabilitation admission. He has been admitted now for acute in-hospital inpatient rehabilitation. PAST MEDICAL HISTORY: Includes a seizure disorder, significant right lower extremity pain with weakness, history of ETOH abuse, pancreatitis, esophagitis, heart disease, peptic ulcer disease, pulmonary embolism, depression, and BPH. HABITS: Heavy tobacco abuse, heavy alcohol abuse. FAMILY HISTORY: Cancer, father with colon cancer. He noted both his father and his brother at age younger than what he is right now. SOCIAL HISTORY: He lives in a motel to avoid stairs. He was independent with ADLs and IADLs prior. He has had falls. He had problems with chronic numbness right foot with weakness. He has a cane and walker at home. He does have an involved son. ALLERGIES: PROPRANOLOL. REVIEW OF SYSTEMS: He was seen later yesterday. No specific complaints of chest pain, shortness of breath, abdominal discomfort, except he notes he has problems on occasion with eating and has gotten sick to his stomach with emesis. He has chronic back pain, right lower extremity pain and weakness. [address] [address] HISTORY AND PHYSICAL Name: JOVANA VELEZ Room #: [address] [place] [address] [place] [facility].#: [id number] Admission: 06/06/20 Attend Phys: Hamilton Tello MD Discharge: Date of : 57 Report #: [id number] PHYSICAL EXAMINATION: GENERAL: He was pleasant, rather verbose, no obvious distress, can be tangential. VITAL SIGNS: Last recorded temperature 98.3, pulse 92, respirations 18, and blood pressure 132/89. HEENT: Facies appeared symmetric. CHEST: Sounded clear to auscultation. CARDIOVASCULAR: Regular rate and rhythm. ABDOMEN: Bowel sounds positive, nontender. NEUROLOGICAL: He is a small statured, thin white male. He has functional range of motion of both upper extremities. Strength is a grade 4-/5. Lower extremities; functional range of motion of the left lower extremity without obvious focal weakness. Right lower extremity, he has the Cam walker boot. He was unable to flex that hip to lift the leg off the bed. So weak right hip flexors grade 2-, abduction is probably 2+, and abduction 3. He is able to extend the knee some at least 3+ to 4- and ankle dorsiflexion appeared to be more of a grade 4- in knee as well as some eversion. No calf swelling. Sensation was reasonably intact to simultaneous stimulation. He has gotten up with the therapists, has been standby assist to come to stand and ____ short distance walker ambulation. ASSESSMENT: This is a 65-year-old white male with the following problem list: 1. Right lower extremity radiculopathy with sciatica with right lower extremity weakness. 2. Functional mobility and ADL deficits. 3. Generalized weakness and debilitation. 4. Sepsis secondary to colitis and severe esophagitis. 5. 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 6. History of ETOH withdrawal and dependence. 7. Seizure disorder. 8. History of pulmonary embolism. PLAN: The patient has been admitted for acute in-hospital inpatient rehabilitation. From a postadmission physician evaluation perspective, there are no relevant changes since the preadmission screening. Please see the above review of prior and current medical and functional conditions and comorbidities. Please see the patient's previous and current functional status. As far as risk of complications, he has multiple medical comorbidities as noted above. Initial plan of care involves the interdisciplinary acute inpatient rehabilitation program. Measurable functional goals would be for the patient to become modified independent with transfers, mobility and ADLs at least with the Cam walker boot. We need to assess with appropriate gait aids. Would anticipate he will need a walker. Prognosis is reasonably good with estimated length of stay probably at least 7-10 days. Potential barriers would include his multiple medical comorbidities and decreased functional status. The patient meets diagnostic criteria for an acute in-hospital inpatient [facility] [address] [place] [address] HISTORY AND PHYSICAL Name: JOVANA VELEZ Room #: 504-1 ADM IN M.R.#: [id number] Admission: 06/06/20 Attend Phys: Hamilton Tello MD Discharge: Date of : 57 Report #: [id number] rehabilitation stay. He meets the medical necessity criteria. We will have the service consultant physicians with Internal Medicine continue to follow regarding his multiple medical comorbidities. He does have the tolerance for therapies and has appropriate discharge goals back to the home setting. By: [id number] [id number] Hamilton Tello MD /nt
[2020-06-06] MEDS ORDERED: IPRAT-ALBUT 0.5-3 ML INH (15:09)
[2020-06-06] MEDS ORDERED: FLAGYL500 M1 PO (15:09)
[2020-06-06] MEDS ORDERED: CIPRO500 M1 PO (15:09)
--- NOTE | 2020-06-06 17:31 | NUR ---
1700 PATIENT ADMITTED TO ROOM 504. PATIENT IS ALERT AND ORIENTED X4. PATIENT SPARKS. 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 LUNGS ARE CLEAR. ABD IS SOFT WITH BSX4. HAS HX OF SZ. DINNER SERVED. FALL AND SAFETY PROTOCOLS IN PLACE. DENIES PAIN. WILL GET PT/OT/ST EVALS IN A.M. CALL LIGHT IN REACH. WILL CONTINUE TO MONITER.
[2020-06-06 18:22] VITALS: BP 132/89
--- NOTE | 2020-06-07 02:13 | NUR ---
INTERESTED IN GETTING A PAIR OF SCRUB PANTS FOR DAYTIME USE, WOULD SETTLE FOR SWEAT PANTS, WILL DISCUSS WITH THERAPY THIS AM. UP TO BSC WITH STANDBY ASSIST FOR LARGE BM. NEEDS MOST PILLS CRUSHED TO BYPASS A TENDER ESOPHAGUS. PERCOCET FOR THIS NON-CARDIAC CHEST PAIN DECREASES LEVEL FROM 9 TO 4
[2020-06-07 06:45] LABS: HEMATOCRIT 29.7 % (42.0-52.0); HEMOGLOBIN 9.5 gm/dL (14.0-18.0); MCH 26.7 pg (26.0-34.0); MCV 83.6 fL (80.0-100.0); RBC 3.56 mil/uL (4.50-6.00); RDW 24.6 % (10.5-14.5); WBC 4.4 thou/uL (4.0-11.0)
[2020-06-07 07:04] LABS: CALCIUM 8.4 mg/dL (8.5-10.1); CREATININE 0.6 mg/dL (0.7-1.3); POTASSIUM 3.9 mmol/L (3.5-5.1)
[2020-06-07 08:00] VITALS: BP 93/61
--- NOTE | 2020-06-07 19:47 | NUR ---
ASSUMED CARE OF PT AT 0700. PT IS A&OX4 AND VITAL SIGNS ARE STABLE. PT REPORTS PAIN TO LOWER BACK, MANAGED WITH PO MEDICAITONS. PT USING EXPLETIVE LANGUAGE TO STAFF THROUGHOUT SHIFT. PT STATED TO CLIENT ENGAGEMENT SPECIALIST IN MORNING WHEN ENTERING ROOM TO OBTAIN VITAL SIGNS "YOU BITCHES KEEP COMING IN HER AND DOING SHIT, YOU ALL NEED TO FUCK OFF SO I CAN EAT MY FOOD." PT ASKED TO REFRAIN FROM USING LANGUAGE TOWARD STAFF AND REPLIED "FUCK OFF AND GET OVER IT". PT PROVIDED WITH SINGLE CUP OF COFFEE IN AM WITH BREAKFAST AND HAD RECEIVED 4+ CUPS OF COFFEE OVERNIGHT. INFORMED PT THAT HE IS ON A HEART HEALTHY DIET AND WOULD BE UNABLE TO OBTAIN COFFEE FOR REMAINDER OF DAY. PT STATED "YOU BITCH DONT KNOW NOTHING SO YOU CAN GO FUCK YOURSELF." PT CALLING NURSING STAFF INAPPROPRIATELY TO CONTINUE BERATING STAFF WITH FOUL LANGUAGE, DESPITE FREQUENT REMINDERS TO REFRAIN FROM BEHAVIORS. DISCUSSED CONCERNS WITH HOSPITALIST, REQUESTED THAT DR HERNANDEZ CONSULT DR PARSONS FOR AGITATION. FALL PRECAUTIONS IN PLACE AND NURSING WILL CONTINUE TO MONITOR.
[2020-06-07 20:00] VITALS: BP 108/69
[2020-06-08] VITALS (9 sets, daily range): BP systolic 87–121; BP diastolic 53–72
--- NOTE | 2020-06-08 07:37 | NUR ---
progress pt a/o x4 up with sba. vss. pt reports pain at a level of 8 to 9 in his esophagus. tolerating liquids taking meds crushed. voiding qs.
--- NOTE | 2020-06-08 18:31 | NUR ---
ASSUMED CARE OF PT AT 0700. PT IS A&OX4. PT REPORTS NON-CARDIAC CHEST PAIN, PO MEDICATIONS PROVIDED. WHILE WORKING WITH THERAPY, PT BECAME DIZZY AND EXPERIENCED NAUSEA, ZOFRAN ADMINISTERED. BP NOTED TO BE 89/53 WITH A HR 168. PT ASSISTED TO BED, PROVIDER NOTIFIED. ORDERS TO GIVE BOLUS OF NS, HOLD THERAPY, HOLD PAIN MEDS FOR LOW BP. BLOOD PRESSURES AND SYMPTOMS MONITORED DURING FLUID ADMINISTRATION. POST BOLUS BP 121/72 WITH HR 82. PAIN MEDICATION ADMINISTERED FOLLOWING BOLUS. PT REPORTS NO DIZZINESS BUT STILL HAS OCCASSIONAL FEELINGS OF NAUSEA. HH ORDERED, NO SIGNIFICANT CHANGE FROM PREVIOUS HH. DR LISA CARSON FOR F/U, NO CALL BACK AT THIS TIME. FALL PRECAUTIONS IN PLACE AND NURSING WILL CONTINUE TO MONITOR.
--- NOTE | 2020-06-09 03:46 | NUR ---
BP OF 108/62 IMMEDIATELY BEFORE PAIN MED GIVEN. ACCEPTS THAT HE WILL GET SINGLE CUP OF COFFEE THIS SHIFT NOW. INCONTINENT OF URINE ONCE THIS SHIFT. CONTINUES TO TAKE PILLS GROUND WITH WATER ONLY, KEPPRA IS NOW GIVEN LIQUID.
[2020-06-09 04:02] VITALS: BP 111/74
[2020-06-09 07:30] VITALS: BP 108/69
--- NOTE | 2020-06-09 10:33 | NUR ---
ASSUMED CARE AT 0700. PATIENT IS ALERT AND ORIENTRED X4. PATIENT SPARKS'S, WELFARE WORKER ARE EQUAL. LUNGS ARE CLEAR. ABD IS SOFT WITH BSX4. PATIENT IS UP WITH HIS CAMWALKER BOOT. PATIENT IS VOIDING LARA COLORED URINE PER URINAL. UP IN BED FOR BREAKFAST. FALL AND SAFETY PROTOCOLS IN PLACE. C/O ESOPHAGEAL PAIN. PATIENT MEDICATED WITH PRN PAIN MED. CONTINUES TO PROGRESS TOWARDS D/C GOALS. S.L. PATIENT IN HIS LEFT FORARM. WILL CONTINUE TO MONITER.
--- NOTE | 2020-06-09 13:17 | NUR ---
cm tried to visit with pt, he was working with therapy. cm tried calling his room and no answer. chart review. he lives in [facility] alone. uses cab for transportation if needed. no past hh or skilled. will cont following as needed for dc needs.
[2020-06-09 19:04] VITALS: BP 122/80
--- NOTE | 2020-06-10 01:13 | NUR ---
BP HAS NORMALIZED, VOIDING LIGHT YELLOW URINE PER URINAL WITH IMPROVED APPETITE, EATING NIKO CRACKERS OTHER AVAILABLE SNACKS TROUBLE HIS ESOPHAGUS
[2020-06-10 04:29] VITALS: BP 121/74
[2020-06-10 07:30] VITALS: BP 122/75
--- NOTE | 2020-06-10 13:13 | NUR ---
team meeting, reccommendation: using cam boot. he refusing to wear afo if it is ordered, he want to cont to wear cam boot. [address] [facility]. need to check with son to see if [facility] in [facility] is set up. hh if able ( pt, nursing).
--- NOTE | 2020-06-10 16:03 | NUR ---
PT ALERT AND ORIENTED TIMES FOUR, WITH BLUNTED AFFECT AT TIMES. VSS. C/O PAIN PRN PAIN MEDICATIONS GIVEN WITH GOOD RELEIF. PT WORKED WELL WITH PT/OT TODAY. PT TOLERATES MEDS AND MEALS.
[2020-06-10 19:10] VITALS: BP 121/69
--- NOTE | 2020-06-11 01:05 | NUR ---
PT ALERT AND ORIENTED X 4. PT C/O NON-CARDIAC CHEST PAIN. PERCOCET GIVEN AT HS. PT TAKES MEDS CRUSHED WITHOUT DIFFICULTY. BED ALARM ON FOR SAFETY. PT APPEARS TO BE SLEEPING ON HOURLY ROUNDS.
[2020-06-11 06:10] LABS: HEMATOCRIT 27.8 % (42.0-52.0); MCH 26.8 pg (26.0-34.0); MCHC 32.2 g/dL (28.0-37.0); MCV 83.1 fL (80.0-100.0); RBC 3.35 mil/uL (4.50-6.00); WBC 6.2 thou/uL (4.0-11.0)
[2020-06-11 06:53] LABS: ALBUMIN 2.3 g/dL (3.4-5.0); CALCIUM 8.1 mg/dL (8.5-10.1); CREATININE 0.8 mg/dL (0.7-1.3); POTASSIUM 4.2 mmol/L (3.5-5.1); TOTAL BILIRUBIN 0.2 mg/dL (0.2-1.0); TOTAL PROTEIN 5.8 g/dL (6.4-8.2)
[2020-06-11 08:00] VITALS: BP 98/59
--- NOTE | 2020-06-11 09:29 | NUR ---
ASSUMED CARE AT 0700. PATIENT IS ALERT AND ORIENTED X4. PATIENT SPARKS'S, ADMINISTRATOR SOCIAL WELFARE ARE EQUAL. LUNGS ARE CLEAR. ABD IS SOFT WITH BSX4. UP IN BED FOR BREAKFAST. PATIENT HAS S.L. IN HIS LEFT F.A. FALL AND SAFETY PROTOCOLS IN PLACE. C/O PAIN IN HIS ESOPHAGUS. MEDICATED WITH PRN PAIN MED. CONTINUES TO PROGESS TOWARDS D/C GOALS. WILL CONTINUE TO MONITER.
--- NOTE | 2020-06-11 10:23 | NUR ---
cm cont to wear own face mask and shield during visit. he stated his son at work and have motel paid and i want to go to [facility] for 1800. [facility] location is what i need. no sure who my son has called the [facility] places, cant remember the names. cm provided him with [facility] list of choice and list. senior blue book left for pat. will cont following as needed for dc needs.
[2020-06-11 14:33] VITALS: BP 110/66
[2020-06-11 19:26] VITALS: BP 115/69
--- NOTE | 2020-06-12 01:13 | NUR ---
PT ALERT AND ORIENTED X 4. VOIDING LARGE AMTS CLEAR YELLOW URINE PER URINAL. PT C/O NON-CARDIAC CHEST PAIN. OXYCODONE GIVEN AT HS. PT STARTED ON MELATONIN AT HS. PT APPEARS TO BE SLEEPING ON HOURLY ROUNDS. BED ALARM ON FOR SAFETY.
[2020-06-12 08:00] VITALS: BP 91/61
--- NOTE | 2020-06-12 10:32 | NUR ---
reginald with [facility] called cm stated that if needing assistance with dcp, call transition care team.[phone]. spoke with dakota who stated that is more for [facility]c department, cm left message with [facility] and will cont following as needed for dc needs.
--- NOTE | 2020-06-12 14:29 | NUR ---
ASSUMED CARE OF PT AT 0700. PT IS A&OX4, HYPOTENSIVE BUT ASYMPTOMATIC. ORTHOSTATIC B/P OBTAINED BY THERAPY, SBP DROP INTO 80S WITH SOME DIZZINESS. PT EDUCATED ABOUT ORTHOSTATIC PRECAUTIONS AND INSTRUCTED TO INCREASE FLUID INTAKE. NON CARDIAC CHEST PAIN NOTED BY PT, MANAGED WITH PO TYLENOL. PT REQUESTING CM VIST ABOUT DISCAHRGE TOMORROW, CM NOTIFIED. FALL PRECAUTIONS IN PLACE AND NURSING WILL CONTINUE TO MONITOR.
--- NOTE | 2020-06-12 16:07 | NUR ---
FAXED REFERRAL TO [facility] RECEIVED CONFIRMATION AND LEFT MSG WITH KOMAL IN ADM. FAXED REFERRAL TO [facility] SPOKE WITH ADM THEY RECEIVED REFERRAL AND WILL REVIEW. FAXED REFERRAL TO [facility] SPOKE WITH ADM THEY RECEIVED REFERRAL AND WILL REVIEW
[2020-06-12 19:12] VITALS: BP 102/65
--- NOTE | 2020-06-13 02:35 | NUR ---
ASSUMED PT CARE AROUND 1930. AXOX4. CALLS APPROPRIATELY FOR ASST. VSS. NO S/S ACUTE DISTRESS NOTED OR REPORTED AT THIS TIME. WILL CONT TO MONITOR FOR ANY CHANGES IN CONDITION.
[2020-06-13 04:49] VITALS: BP 107/71
[2020-06-13 08:00] VITALS: BP 94/64
[2020-06-13] MEDS ORDERED: CREON DR 36,001 EACH PO ×2 (09:04→10:23)
[2020-06-13] MEDS ORDERED: FOLIC ACID1 MG PO ×2 (09:04→10:23)
[2020-06-13] MEDS ORDERED: VITAMIN B-1100 M2 PO ×2 (09:04→10:23)
[2020-06-13] MEDS ORDERED: VITAMIN D31250 MC1 PO ×2 (09:04→10:23)
[2020-06-13] MEDS ORDERED: PROTONIX40 M2 PO ×2 (09:04→10:23)
[2020-06-13] MEDS ORDERED: CARAFATE 1 GM TA1 G1 PO ×2 (09:04→10:23)
[2020-06-13] MEDS ORDERED: PROBIOTIC1 EAC1 PO ×2 (09:04→10:23)
[2020-06-13] MEDS ORDERED: ELIQUIS5 MG PO ×2 (09:04→10:23)
[2020-06-13] MEDS ORDERED: PERCOCET PO (09:05)
--- NOTE | 2020-06-13 09:32 | NUR ---
cm team got prices for places to move into: [facility] $1500 per month, includes transportation and activity. have to pay for own phone, cable, and internet. [facility] $ 3450 and $ 25 per day for level of care needed. [facility] $2875/per month, and [facility] $1681/ per month. cm passed on information to angeline.
[2020-06-13 09:39] VITALS: BP 107/71
[2020-06-13 09:57] VITALS: BP 107/71
--- NOTE | 2020-06-13 12:40 | NUR ---
FAXED DC ORDERS/SUMMARY TO [facility] HH SPOKE WITH RENU IN INTAKE SHE RECEIVED ORDERS AND WILL CALL PT TO SET UP VISITS.
--- NOTE | 2020-06-13 13:57 | NUR ---
ASSUMED CARE OF PT AT 0700. PT IS A&OX4 AND VITAL SIGNS ARE STABLE. PT REPORTS NON-CARDIAC CHEST PAIN, MANAGED WITH PO MEDICATIONS. ORDERS FOR DISCHARGE TODAY. PT ASSISTED WITH ADLS PRIOR TO DISCHARGE. PT EXPRESSED CONCERN THAT HIS APARTMENT RIVERO IS MISSING WITH THE SHIRT HE WAS WEARING ON ADMISSION. BELONGINGS FROM SECURITY RETURNED TO PT. BELONGINGS GATHERED BY PT. DISCHARGE SCRIPTS PROVIDED TO PT AT TIME OF DISCHARGE. PT NOTIFIED THAT OUTPATIENT PHARMACY WILL BE UNABLE TO FILL SCRIPTS WITH HIS INSURANCE. DISCHARGE INSTRUCTIONS AND EDUCATION COMPLETED WITH PT BY MARY CULLEN AT TIME OF DISCHARGE. MARY CULLEN ASSISTED PT TO WET PROCESS HEAD MILLER RIDE AT TIME OF DISCHARGE. PT LEFT UNIT AT 1300.
== END 2020-06-13 13:05 | disposition home health service (06) | DRG 73 ==
PROVIDERS: Nurse Practitioner; Nurse Practitioner Family; ADMIT Physical Medicine & Rehabilitation; ATTEND Physical Medicine & Rehabilitation
DX: M54.10 Radiculopathy, site unspecified (principal); A41.9 Sepsis, unspecified organism; F10.239 Alcohol dependence with withdrawal, unspecified; R53.81 Other malaise; K20.9 Esophagitis, unspecified; K70.10 Alcoholic hepatitis without ascites; Y90.9 Presence of alcohol in blood, level not specified; I95.9 Hypotension, unspecified; K52.9 Noninfective gastroenteritis and colitis, unspecified; N40.0 Benign prostatic hyperplasia without lower urinary tract symptoms; F32.9 Major depressive disorder, single episode, unspecified; R26.9 Unspecified abnormalities of gait and mobility; D69.6 Thrombocytopenia, unspecified; M54.31 Sciatica, right side; G40.909 Epilepsy, unspecified, not intractable, without status epilepticus; Z86.711 Personal history of pulmonary embolism; Z79.01 Long term (current) use of anticoagulants; Z87.11 Personal history of peptic ulcer disease; Z80.0 Family history of malignant neoplasm of digestive organs; Z65.8 Other specified problems related to psychosocial circumstances
CPT/HCPCS: 10112

== ENCOUNTER 2020-07-10 20:51 | Emergency (ER) | payer OTHER ==
[~2020-07-10] VITALS: Ht 185.4 cm; Wt 63.0 kg
[~2020-07-10 20:51] MED LIST changes: +CIPRO500 M1 PO; +FLAGYL500 M1 PO; +IPRAT-ALBUT 0.5-3 ML INH; +PERCOCET PO; +PROBIOTIC1 EAC1 PO
[2020-07-10 21:17] LABS: ANION GAP 9 mmol/L (7-16); BUN 7 mg/dL (7-18); CALCIUM 8.6 mg/dL (8.5-10.1); CHLORIDE 101 mmol/L (98-107); CO2 22 mmol/L (21-32); CREATININE 0.8 mg/dL (0.7-1.3); GLUCOSE 94 mg/dL (74-106); POTASSIUM 4.8 mmol/L (3.5-5.1); SODIUM 132 mmol/L (136-145)
[2020-07-10 21:27] LABS: ALBUMIN 2.9 g/dL (3.4-5.0); SGOT 51 U/L (15-37); SGPT 13 U/L (30-65); TOTAL BILIRUBIN 0.4 mg/dL (0.2-1.0); TOTAL PROTEIN 6.4 g/dL (6.4-8.2); TROPONIN-I <0.06 ng/mL (<0.06)
[2020-07-10 21:54] LABS: ABSOLUTE NEUTROPHILS 4.3 thou/uL (1.4-8.2); HEMATOCRIT 31.5 % (42.0-52.0); HEMOGLOBIN 10.1 gm/dL (14.0-18.0); MCHC 31.9 g/dL (28.0-37.0); MCV 84.5 fL (80.0-100.0); PLATELET COUNT 278 thou/uL (150-400); RBC 3.73 mil/uL (4.50-6.00); WBC 8.2 thou/uL (4.0-11.0)
[2020-07-10 22:18] LABS: ANISOCYTOSIS 1+; POLYCHROMASIA OCCASIONAL
[2020-07-10 22:19] LABS: HYPOCHROMASIA SLIGHT
[2020-07-10 23:34] VITALS: BP 146/86
[2020-07-10] MEDS ORDERED: PROTONIX40 MG PO (23:34)
--- NOTE | 2020-07-11 12:32 | EKG ---
[facility] [place] [address] ELECTROCARDIOGRAM REPORT Name: JOVANA VELEZ Room #: DEP [facility]#: [id number] Admission: 07/10/20 Attend Phys: Discharge: 07/10/20 Date of : 57 Report #: [id number] THIS REPORT FOR: cc: [facility] - Clinic physician unknown [facility] - Clinic physician unknown Terrance Conklin MD [facility] ~ THIS REPORT FOR: //name// [facility] ED Test Date: 2020-07-10 Test Time: 20:53:56 Pat Name: JOVANA VELEZ Department: Room: Gender: Felt Checker: [facility] : 1955 Requested By: Dante Obrien Order Number: [id number] MD: Terrance Conklin Measurements Intervals [place] Rate: 66 P: 47 KS: 149 QRS: 48 QRSD: 93 T: 61 QT: 395 QTc: 414 Interpretive Statements Sinus rhythm Normal tracing Compared to ECG 06/01/2020 08:45:05 Sinus tachycardia no longer present Electronically Signed On 07-11-2020 12:32:02 CDT by Terrance Conklin [email or web address] <ELECTRONICALLY SIGNED> By: Terrance Conklin MD, FACC 07/11/20 1232 52 52 Terrance Conklin MD, [facility] /EPI
== END 2020-07-10 23:34 | disposition home or self-care (01) ==
LOC: ER 20:51
PROVIDERS: Emergency Medicine
DX: K21.00 Gastro-esophageal reflux disease with esophagitis, without bleeding (principal); G40.909 Epilepsy, unspecified, not intractable, without status epilepticus; G89.4 Chronic pain syndrome; R07.89 Other chest pain; I10 Essential (primary) hypertension; F17.210 Nicotine dependence, cigarettes, uncomplicated; Z79.899 Other long term (current) drug therapy; Z88.8 Allergy status to other drugs, medicaments and biological substances

== ENCOUNTER 2020-07-19 19:26 | Emergency (ER) | payer OTHER ==
[~2020-07-19] VITALS: Ht 185.4 cm; Wt 64.0 kg
[~2020-07-19 19:26] MED LIST changes: +PROTONIX40 MG PO
[2020-07-19 20:25] LABS: HEMOGLOBIN 11.4 gm/dL (14.0-18.0)
[2020-07-19 20:26] LABS: HEMATOCRIT 35.5 % (42.0-52.0); MCV 84.3 fL (80.0-100.0); PLATELET COUNT 349 thou/uL (150-400); RBC 4.22 mil/uL (4.50-6.00); RDW 25.3 % (10.5-14.5); WBC 6.6 thou/uL (4.0-11.0)
[2020-07-19 20:32] LABS: ANION GAP 12 mmol/L (7-16); BUN 4 mg/dL (7-18); CALCIUM 8.9 mg/dL (8.5-10.1); CHLORIDE 106 mmol/L (98-107); CO2 25 mmol/L (21-32); CREATININE 0.7 mg/dL (0.7-1.3); GLUCOSE 89 mg/dL (74-106); POTASSIUM 3.7 mmol/L (3.5-5.1); SODIUM 143 mmol/L (136-145)
[2020-07-19 20:38] LABS: APTT 28.3 Seconds (24.5-32.8); PROTIME 9.7 Seconds (9.3-11.4)
[2020-07-19 20:42] LABS: ALBUMIN 3.1 g/dL (3.4-5.0); SGOT 37 U/L (15-37); SGPT 17 U/L (30-65); TOTAL BILIRUBIN < 0.1 mg/dL (0.2-1.0); TOTAL PROTEIN 6.9 g/dL (6.4-8.2); TROPONIN-I <0.06 ng/mL (<0.06)
[2020-07-19 21:00] LABS: ANISOCYTOSIS 1+; POLYCHROMASIA OCCASIONAL
[2020-07-19 21:02] LABS: ABSOLUTE NEUTROPHILS 2.6 thou/uL (1.4-8.2)
[2020-07-19 21:06] LABS: URINE BILIRUBIN NEGATIVE (Negative); URINE BLOOD NEGATIVE (Negative); URINE CLARITY CLEAR; URINE COLOR YELLOW; URINE GLUCOSE-RANDOM* NEGATIVE (Negative); URINE KETONES NEGATIVE (Negative); URINE LEUKOCYTES-REFLEX NEGATIVE (Negative); URINE NITRITE-REFLEX NEGATIVE (Negative); URINE PROTEIN (DIPSTICK) NEGATIVE (Negative); URINE SPECIFIC GRAVITY 1.015 (1.005-1.035); URINE UROBILINOGEN 0.2 E.U./dl (0.2-1.0)
[2020-07-19 21:17] LABS: AMP/METHAMP Negative (Negative); BARBITURATES Negative (Negative); BENZODIAZEPINES Negative (Negative); COCAINE Negative (Negative); METHADONE Negative (Negative); OPIATES Negative (Negative); PCP Negative (Negative)
[2020-07-20 00:15] VITALS: BP 143/86
--- NOTE | 2020-07-21 07:46 | EKG ---
[facility] [place] [address] ELECTROCARDIOGRAM REPORT Name: JOVANA VELEZ Room #: [facility]#: [id number] Admission: 07/19/20 Attend Phys: Discharge: 07/19/20 Date of : 57 Report #: [id number] THIS REPORT FOR: cc: Suleiman Sampson MD, Arthur MD Lundgren,Terrance Gray MD [facility] ~ THIS REPORT FOR: //name// [facility] ED Test Date: 2020-07-19 Test Time: 19:58:35 Pat Name: JOVANA VELEZ Department: Room: Gender: Land Survey Technician: : 1955 Requested By: Tera Hilliard Order Number: [id number] MD: Terrance Conklin Measurements Intervals [place] Rate: 85 P: 10 [place]: 150 QRS: 22 QRSD: 91 T: 50 QT: 385 QTc: 458 Interpretive Statements Sinus rhythm No significant abnormality Compared to ECG 07/10/2020 20:53:56 No significant changes Electronically Signed On 07-21-2020 7:46:51 PAPERBOARD BOXES ESTIMATOR by Terrance Conklin [email or web address] <ELECTRONICALLY SIGNED> By: Terrance Conklin MD, [facility] 07/21/20 0746 57 57 Terrance Conklin MD, [facility] /EPI
== END 2020-07-19 23:55 | disposition home or self-care (01) ==
LOC: ER 19:26
PROVIDERS: Emergency Medicine
DX: R20.2 Paresthesia of skin (principal); R56.9 Unspecified convulsions; R20.0 Anesthesia of skin; R53.1 Weakness; F32.9 Major depressive disorder, single episode, unspecified; K21.9 Gastro-esophageal reflux disease without esophagitis; I10 Essential (primary) hypertension; F17.210 Nicotine dependence, cigarettes, uncomplicated; Z86.73 Personal history of transient ischemic attack (TIA), and cerebral infarction without residual deficits; Z79.899 Other long term (current) drug therapy; Z88.8 Allergy status to other drugs, medicaments and biological substances; W05.0XXA Fall from non-moving wheelchair, initial encounter; Y93.89 Activity, other specified; Y92.128 Other place in nursing home as the place of occurrence of the external cause; Y99.8 Other external cause status

== ENCOUNTER 2020-08-04 13:44 | Emergency (ER) | payer OTHER ==
[~2020-08-04] VITALS: Ht 185.4 cm; Wt 60.8 kg
--- NOTE | 2020-08-04 14:42 | EKG ---
[facility] [place] [address] ELECTROCARDIOGRAM REPORT Name: GIL VELEZ Room #: PRE M.R.#: [id number] Admission: Attend Phys: Discharge: Date of : 57 Report #: [id number] THIS REPORT FOR: cc: Suleiman Sampson MD, Arthur MD Santiago,Gil [facility] ~ THIS REPORT FOR: //name// [facility] ED Test Date: 2020-08-04 Test Time: 14:03:22 Pat Name: GIL VEELZ Department: Room: Gender: M Health Inspector Food: TWYLA : 1955 Requested By: Dante Obrien Order Number: [id number] MD: Gil Gonzales Measurements Intervals [place] Rate: 89 P: 22 W[place]: 150 QRS: 13 QRSD: 94 T: 62 QT: 379 QTc: 462 Interpretive Statements Sinus rhythm Borderline low voltage, extremity leads Abnormal R-wave progression, early transition Baseline wander in lead(s) V1 Compared to ECG 07/19/2020 19:58:35 No significant changes Electronically Signed On 08-04-2020 14:42:25 THROAT CUTTER by Gil Gonzales [email or web address] <ELECTRONICALLY SIGNED> By: Gil Gonzales MD, FACC 08/04/20 1442 1403 1403 Gil Gonzales MD, FACC /EPI
[2020-08-04 15:20] LABS: ANION GAP 11 mmol/L (7-16); BUN 5 mg/dL (7-18); CALCIUM 8.9 mg/dL (8.5-10.1); CHLORIDE 103 mmol/L (98-107); CO2 26 mmol/L (21-32); CREATININE 0.7 mg/dL (0.7-1.3); GLUCOSE 93 mg/dL (74-106); POTASSIUM 3.5 mmol/L (3.5-5.1); SODIUM 140 mmol/L (136-145)
--- NOTE | 2020-08-04 15:21 | NUR ---
PT INAPPROPRIATE WHEN ATTEMPTING TO PROVIDE CARE.
[2020-08-04 15:22] LABS: HEMATOCRIT 42.1 % (42.0-52.0); HEMOGLOBIN 13.7 gm/dL (14.0-18.0); MCH 27.5 pg (26.0-34.0); MCHC 32.5 g/dL (28.0-37.0); MCV 84.6 fL (80.0-100.0); PLATELET COUNT 383 thou/uL (150-400); RBC 4.97 mil/uL (4.50-6.00); RDW 23.1 % (10.5-14.5); WBC 7.7 thou/uL (4.0-11.0)
[2020-08-04 15:30] LABS: ALBUMIN 3.3 g/dL (3.4-5.0); MAGNESIUM 1.7 mg/dL (1.8-2.4); SGOT 74 U/L (15-37); SGPT 30 U/L (30-65); TOTAL BILIRUBIN 0.4 mg/dL (0.2-1.0); TOTAL PROTEIN 7.4 g/dL (6.4-8.2); TROPONIN-I <0.06 ng/mL (<0.06)
[2020-08-04 15:52] LABS: ABSOLUTE NEUTROPHILS 2.5 thou/uL (1.4-8.2); ATYPICAL LYMPHS 2 %
[2020-08-04 21:43] LABS: URINE BILIRUBIN NEGATIVE (Negative); URINE BLOOD NEGATIVE (Negative); URINE CLARITY CLEAR; URINE COLOR YELLOW; URINE GLUCOSE-RANDOM* NEGATIVE (Negative); URINE KETONES NEGATIVE (Negative); URINE LEUKOCYTES-REFLEX NEGATIVE (Negative); URINE NITRITE-REFLEX NEGATIVE (Negative); URINE PROTEIN (DIPSTICK) NEGATIVE (Negative); URINE UROBILINOGEN 0.2 E.U./dl (0.2-1.0)
[2020-08-04 21:52] LABS: AMP/METHAMP Negative (Negative); BARBITURATES Negative (Negative); BENZODIAZEPINES Negative (Negative); COCAINE Negative (Negative); METHADONE Negative (Negative); OPIATES Negative (Negative); PCP Negative (Negative)
[2020-08-05 05:56] VITALS: BP 145/90
== END 2020-08-05 06:04 | disposition still patient (30) ==
LOC: ER 13:44
PROVIDERS: Emergency Medicine
DX: R45.851 Suicidal ideations (principal); I10 Essential (primary) hypertension; K21.9 Gastro-esophageal reflux disease without esophagitis; F17.210 Nicotine dependence, cigarettes, uncomplicated; Z79.899 Other long term (current) drug therapy; Z88.8 Allergy status to other drugs, medicaments and biological substances; Z20.828 Contact with and (suspected) exposure to other viral communicable diseases

== ENCOUNTER 2020-08-05 05:43 | Inpatient (IN) | payer OTHER ==
[~2020-08-05] VITALS: Ht 185.4 cm; Wt 95.3 kg
[2020-08-05 07:35] VITALS: BP 118/79; BP 135/73
--- NOTE | 2020-08-05 07:56 | NUR ---
Arrived via wheel chair from [facility], accompanied by x1 staff. Report called by Pauline HERNANDEZ in the ED. Uses a urinal, also asked for water. Takes meds one at a time with water. Screams and throws things, verbally agressive and disrespectful. In the ED said, "I want to kill my fucking self, I want to ". Cannot lift L arm. Hx of seizure and ETOH use disorder. Altered mental status. VS 118/79 86 98% 16 Afebrile 98.0. Transferred to bed 526A, changed to [facility] aproved clothing and laundry his sweat pants and underwear which were all wet with urine and feces.
[2020-08-05 11:12] VITALS: BP 118/79
--- NOTE | 2020-08-05 13:34 | NUR ---
ASSUMED CARE OF PATIENT FROM 7P-7A SHIFT.PT IN BED.ADMITTED WITH DX OF ETOH ABUSE AND DEPRESSION,HX OF SEIZURES AND GERD.PT IS A/O X3. SPEECH IS CLEAR, IS DEMANDING, WANTING HIS LIDOCAINE SWALLOW THAT THEY WOULDNT GIVE HIM AT THE ASSISTED LIVING PLACE HE ADMITS TO STAYING AT FOR 2MONTHS BUT SAYS LAST COUPLE OF DAYS HE WAS STAYING IN A MOTEL.PT EDUCATED TO ROOM AND IS ON CIWA PRECAUTIONS. STATES LAST SEIZURE WAS 2WEEKS AGO AND IT WAS A GRAND MAL SEIZURE ACCORDING TO PT. HX OF FALLS WHEN HE HAS A SEIZURE. PT DENIES SI OR HI FOR THIS CONTROLLER REPAIRER AND TESTER "i DONT KNOW WHY THEY BROUGHT ME TO THE NUT FLOOR" LUNGS CLEAR AP REGULAR ABD SOFT NONTENDER WITH +BOWEL SOUNDS. NO PEDAL EDEMA AND HAS A BOOT FOR RIGHT LEG FOR SUPPORT FOR AN OLD INJURY OF WHICH HE HAS SCIATICA PAIN IN LOW BACK AND DOWN RIGHT LEG.DR VAZQUEZ IN TO TALK WITH PT AND PT GIVEN A CARAFATE SLURRY FOR EPIGASTRIC PAIN. WANTS TO TAKE MEDS CRUSHED, AND DRY WHICH HE TAKES WITHOUT DIFFICULTY. TRANSFERS TO W/C WITH STANDBY ASSIST AND PROPELS SELF ABOUT TO LUNCH. GOES BACK TO ROOM AFTERWARD,REFUSING TO GO TO 1PM GROUP. VOIDS PER URINAL.
[2020-08-05 13:45] VITALS: BP 138/88
--- NOTE | 2020-08-05 13:54 | NUR ---
RENA contacted [facility] and spoke with Jh. Jh informed the Pt left on his own. Jh stated she would not accept [facility] Pt back into the facility due to the Pt cussing out staff and other residence constantly. Jh stated " he was just a nasty man, I don't think he will be happy anywhere he goes." Jh had no other concerns or comments.
--- NOTE | 2020-08-05 14:38 | NUR ---
SW completed SLUMS with Pt. Pt scored
--- NOTE | 2020-08-05 15:23 | NUR ---
RENA recieved a call from SHEELA Smith, ext [phone]. Luis believed the Pt had a placement. RENA informed the Pt signed his self out of [facility] a couple of weeks ago. Luis informed the Pt has been in several [place] contracted facilities and has signed his self out each time. Luis informed [place] does not pay for motels, [place] or [place] placements. Becca stated that Pt would be a hard placment due to his history of signing himself out. RENA will continue to follow
[2020-08-05 19:20] VITALS: BP 144/102
[2020-08-05 21:00] VITALS: BP 111/79
--- NOTE | 2020-08-05 23:01 | NUR ---
Care assumed of patient at 1915: Patient sleeping in bed at start of shift. Easily aroused. Anxious with assessment questions, otherwise calm, lethargic. Alert and oriented to person only. Patient would state "I don't know" to other orientation questions. Denies SI/HI/AH/VH. Denies depression. BP 144/102 at start of shift. CIWA completed. Score 5 at 1999. Administered Ativan 1mg po. Spoke with ALTA Jackson, regarding elevated BP. Requested to provide PRN Ativan, follow up in one hour, if BP remains elevated to call back. Patient originally was sweating, clothing moist. Mild anxiety observed during assessment. On 1 hour follow up, BP 111/79, patient less anxious and more cooperative with nursing assessment questions. Patient used urinal, continent of bladder. Took HS medication crushed without difficulty. Declined HS snack. Denies pain or discomfort. Patient has been able to rest quietly. Fall precautions in place.
[2020-08-06 07:30] VITALS: BP 111/79
--- NOTE | 2020-08-06 07:30 | NUR ---
PT WANTING COFFEE THIS AM WHEN THIS ASSET PROTECTION GREETER WAS FINISHING REPORT.
--- NOTE | 2020-08-06 07:45 | NUR ---
PT UPSET THAT HE DIDN'T GET HIS COFFE AND TALKING ABOUT HOW THE STAFF IS NOT CARING ABOUT HIM. HE ALSO SAID HE TAKES GI COCKTAIL BEFORE EATING. THIS BOOKKEEPING CLERK GOT THE GI COCKTAIL FOR HIM. HE SAYS HE TAKES GI COCKTAIL 30MIN BEFORE HE EATS AND IT HELPS WITH EATING.
--- NOTE | 2020-08-06 11:29 | NUR ---
ADM TYLENOL 325MG 2 TABS PO FOR PAIN TO RT LEG. PT WORKING WITH PHYSICAL THERAPY AND HE STATED HE CAN'T WALK ON THE RT LEG DUE TO THE SCIATICA NERVE. PT DID GET INTO THE W/C AND TAKEN TO DINING ROOM.
--- NOTE | 2020-08-06 12:21 | NUR ---
PT UPSET THAT HE DIDN'T GET HIS GI COCKTAIL FOR LUNCH. HE SAYS WITHOUT IT HE HAS PAIN TO CHEST, BURNING. PT HAVING TROUBLE GETTING POTATOES DOWN WITHOUT PAIN. WILL HAVE TO CONTACT DR. PRADO.
--- NOTE | 2020-08-06 12:45 | NUR ---
DR. MCELROY HERE TO SEE PT. TOLD HIM CONSERNS ABOUT GI COCKTAIL NOT GIVEN AT NOON. HE STATE HE WILL ORDER HIS GI COCKTAIL BEFORE MEALS AND AT BEDTIME.
--- NOTE | 2020-08-06 14:31 | NUR ---
PT STATED HE WANTS TO LEAVE TODAY DUE TO HIS MEDICATIONS ARE NOT RIGHT. HE SAYS HE KNOWS WHAT HE TAKES AT HOME. SALES AND SERVICE OFFICER STATED HE IS PLANNED TO DISCHARGE TOMMORROW, HE SAID THE SOONER THE BETTER.
[2020-08-06 15:17] VITALS: BP 111/79
--- NOTE | 2020-08-06 16:10 | NUR ---
GIVING PT GI COCKTAIL AND HE SAID HE TAKES IT 30 MIN BEFORE HE EATS AND CARAFATE AND HOUR BEFORE HE EATS, IN IS ROOM HE SAID THE OPPOSITE HE SAID GI COCKTAIL AT 1600. HE DOESN'T UNDERSTAND WHY THE MEDS IS SO MESSED UP, HE STATED HE HATED THIS PLACE.
--- NOTE | 2020-08-06 17:03 | NUR ---
RENA meet with the Pt several times concerning discharge. Pt stated that he wanted to leave as soon as possible. Pt feels like he is not getting all of his medications and stated he can take care of hisself. RENA informed Pt he was set for discharge and asked if he had a place he would like a taxi to. Pt stated, " I guess I will go to a motel". SW asked which motel he would like to go to. Pt stated, " whatever motel is close to here, I have $90 I can use to get a room". RENA later provided Pt with printout of motels that are near. SW ask the Pt to let SW know which hotel he would like a taxi to. Pt threw the list on the floor stating " I don't need no help from this place, I can get it myself". RENA ecouraged Pt to find a motel so that transportation can be set for his d/c. As of this note Pt refuses to give motel or place he would like to d/c to.
--- NOTE | 2020-08-06 17:17 | NUR ---
PT EATING 100% OF DINNER, HE SAYS THAT SEE WHAT I CAN EAT WHEN I GET MY MEDS.
--- NOTE | 2020-08-06 17:21 | NUR ---
[facility] to to schedule [facility]olloow up appt with PCP and psychiatrist. PCP appointment will be 08/25/2020 @ 9am. Psychiatry appointment could not be set up due to the [facility] stating it needed to be over the phone and they do not have an current phone number for the Pt. RENA called Mariana the Psychiatric Nurse and left a message with Pt's current phone number and emergency number. SW awaiting a phone call with appointment time and date.
[2020-08-06 20:03] VITALS: BP 123/71
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
--- NOTE | 2020-08-07 05:43 | NUR ---
08-06-20 CARE TRANSFERRED 1944 PT SUPINE IN BED WITH EYES OPEN, PT AAOX3, VSS, RR EVEN AND NONLABORED ON RA. PT DENIES ANY PAIN AND SI/HI AT THIS TIME. PT MAIN CONCERN IS HIS MEDICATION REGIMENT AND HIS RELEASE TOMORROW. PT PRESENTS IRRITABLE, BUT REMAINED CALM AND COOPERATIVE. 400ML OF LIGHT YELLOW URINE EMPTY FROM URINAL. LATER PT REPORT PAIN IN LE AND RATED 6 ON 0-10 SCALE AND PRN TYLENOL ADMIN. WHEN GOING BACK FOR REASSESSMENT OF PAIN NOTED PT RESTING WITH EYES CLOSED. 300ML OF LIGHT YELLOW URINE EMPTY FROM URINAL. ZERO S/S OF ACUTE DISTRESS NOTED, PT WILL CONTINUE TO BE MONITOR PER [facility] PROTOCOL.
--- NOTE | 2020-08-07 09:10 | NUR ---
RENA scheduled a follow up psychiatric appointment with Dr. Mendenhall at the [facility] for 08/08/20 @ 930am. Pt was given a RENA discharge summary with his appointment information. A copy was placed in the chart. Pt stated he had a regular subway train driver, Alvaro, he wanted transportation set up with. RENA contacted Alvaro at [phone] to schedule transportation at 10 am. Pt would not given a location he was going just stating he needs to go to the bank and to [facility] today.
--- NOTE | 2020-08-07 09:37 | NUR ---
0700- accepted patient from 7p-7a shift. Pt is up in w/c with right leg boot on.has numerous complaints this am- I want coffee nobody will get me any,everybodys stupid around here. Im leaving at 10am I dont care if the paperwork isnt ready. GI cocktail given before breakfast. Pt is unhappy about his breakfast, denies SI/HI. Is anxious to discharge today. pt given clothes out of locker and has some $ in security..Dr Weaver here and group social worker also at bedside.Takes meds crushed and dry followed by water.
[2020-08-07] MEDS ORDERED: NEURONTIN 400M400 M2 PO (09:48)
[2020-08-07] MEDS ORDERED: KEPPRA 500 MG500 M1 PO (09:48)
[2020-08-07] MEDS ORDERED: ELIQUIS5 MG PO (09:49)
[2020-08-07] MEDS ORDERED: CREON DR 36,001 EACH PO (09:49)
[2020-08-07] MEDS ORDERED: CARAFATE 1 GM TA1 G1 PO (09:50)
[2020-08-07] MEDS ORDERED: PROTONIX40 M2 PO (09:50)
[2020-08-07] MEDS ORDERED: VITAMIN D31250 MC1 PO (09:51)
--- NOTE | 2020-08-07 10:44 | NUR ---
1020AM-PT GIVEN SCRIPTS AND DISCHARGE INSTRUCTIONS.pAPERS SIGNED AND WITNESSED. PT DRESSED SELF AND IN W/C WITH RIGHT LEG BOOT ON. PT ECORTED TO SECURITY FOR BELONGINGS AND AWAITING HIS TAXI. THIS SCHOOL TREASURER STAYED WITH PT AND PT LEAVES AT 1035.
[2020-08-07 11:08] VITALS: BP 123/71
--- NOTE | 2020-08-10 09:24 | D ---
[facility] [place] [address] DISCHARGE SUMMARY Name: JOVANA VELEZ Room #: 526A-A [facility] IN M.R.#: [id number] Admission: 08/05/20 Attend Phys: Maikel Weaver DO Discharge: 08/07/20 Date of : 57 Report #: [id number] THIS REPORT FOR: cc: Suleiman Sampson MD,Suleiman Weaver,Maikel Gray DO ~ CC: Maikel Sampson DATE OF SERVICE: 08/07/2020 INPATIENT PSYCHIATRIC DISCHARGE SUMMARY ATTENDING PSYCHIATRIST: Maikel Weaver DO. FLIGHT SIMULATOR TEACHER: Ra De Leon M.D. DISCHARGE DIAGNOSES: Unspecified depressive disorder, improved; substance use disorder for alcohol, severe; alcohol intoxication, resolved; alcohol withdrawal completed. Medical comorbidities affecting this patient are fever, likely due to a hot beverage when temperature was taken. Chest x-ray and UA negative. Grade D esophagitis with history of peptic ulcer disease. The patient is on GI cocktail before meals and bedtime, PPI twice a day and Carafate. Peripheral neuropathy with right foot drop, the patient refused ankle-foot orthosis, chronically wears a CAM boot. History of seizures, on Keppra. History of PE, on Eliquis. For discharge, the patient strictly got a 15-day prescribed supply of his medications. DISCHARGE MEDICATIONS: As follows: Multivitamin p.o. daily, folic acid 1 mg p.o. daily, thiamine 100 mg p.o. daily, gabapentin 400 mg p.o. 3 times a day. First 3 were supplements. Gabapentin was for neuropathy, pain and to assist with cravings for alcohol. Keppra is 1500 mg p.o. b.i.d. for seizure disorder, Eliquis 5 mg p.o. b.i.d. for anticoagulation, pancreatic enzyme replacement including lipase, protease, amylase 3 capsules each p.o. with meals, Carafate 1 g p.o. a.c. and at bedtime, Protonix 40 mg p.o. b.i.d. for GERD; cholecalciferol 5000 International Units p.o. daily. No narcotics are recommended for this patient. The patient is discharging to a motel of his choosing. His psychiatric and general medical care will be provided at the [facility]. A schedule for those appointments are Dr. Mendenhall, 08/08/2020 at 9:30 a.m. Alvaro will be picking him up, it is his VA crew truck driver, his number is [phone] and the other appointment was PCP at the [facility] 08/25/2020 at 9:[address] [address] DISCHARGE SUMMARY Name: ROSIEJOVANA Room #: 526A-A [facility] IN M.R.#: [id number] Admission: 08/05/20 Attend Phys: Maikel Weaver DO Discharge: 08/07/20 Date of : 57 Report #: [id number] The patient is advised to abstain strictly from alcohol. The patient has Veterans crisis hotline as well as community crisis suicide hotline and is encouraged to utilize those. LABORATORY DATA: Done here this admission, he was initially seen in the ER on the 16, white count 7.7, H and H 13.7 and 42.1, platelet count 383. Sodium 140, potassium 3.5, chloride 103, bicarbonate 26, anion gap 11, BUN 5, creatinine 0.7, estimated GFR 114, glucose 93. Calcium 8.9, magnesium 1.7, total bilirubin 0.4, direct bilirubin 0.9, AST high at 74, ALT 30, alkaline phosphatase 103. CK 116. The CK was from 02/06. Troponin less than 0.06. Additional laboratories, total protein 7.4, albumin 3.3. Urinalysis was negative. Urine drug screen, serum alcohol level 274 in the ER that is where he threatened suicide, acetaminophen less than 2. COVID-19 PCR serology was negative. REASON FOR ADMISSION: A 65-year-old male, initially had come to the Emergency Room for chest pain. He was intoxicated. It was felt to be due to his esophagitis. The patient made a statement in front of Emergency Room staff and the attending psychiatrist that he was going to go out with a gun and shoot himself. The patient was initially admitted on a 96-hour hold, but that turned out not to be necessary to complete as the patient was willing to stay a couple of days. The patient then became uncooperative with the discharge plan, particularly his housing. Given that the patient has only VA benefits this case was discussed with the VA. Unfortunately, we are not going to be able to do any more than get him appointments at the [facility] and encourage him to do better with his housing. Prognosis remains guarded with certainly provocative risk factors of suicidality, however, not meeting criteria for inpatient psychiatric hospitalization. PHYSICAL EXAMINATION: VITAL SIGNS: On the day of discharge are as follows: Temperature 36.5, pulse 66, respirations 17, BP 123/71, O2 sat 100%. MUSCULOSKELETAL: Uses a wheelchair, can walk, chooses not to. MENTAL STATUS EXAMINATION: This is a well-developed, unkempt appearing male, in scrubs. Attention fair. Concentration fair. Speech normal rate. Thought process linear and goal directed. Thought content focused on getting out of hospital. Slight psychomotor agitation. No psychomotor retardation. Denied SI, HI. Some helplessness, no hopelessness. Denied auditory, visual, or tactile hallucinations. Denied suicidal or homicidal ideations. Mood and affect was irritable, frustrated, congruent, constricted. Memory not formally tested. Insight limited. Judgment fair to limited. Fund of knowledge, no greater than average. [facility] [address] [place] [address] DISCHARGE SUMMARY Name: JOVANA VELEZ Room #: 526A-A [facility] IN [facility].#: [id number] Admission: 08/05/20 Attend Phys: Maikel Weaver DO Discharge: 08/07/20 Date of : 57 Report #: [id number] PROGNOSIS: For this patient is guarded given his only partial cooperation with discharge planning, his failure to follow through with things. <ELECTRONICALLY SIGNED> By: Maikel Weaver DO 08/10/20 0924 1338 0109 Maikel Weaver DO /nt
== END 2020-08-07 10:35 | disposition home or self-care (01) | DRG 881 ==
LOC: SBH
PROVIDERS: ADMIT Psychiatry & Neurology Psychiatry; ATTEND Psychiatry & Neurology Psychiatry
DX: F32.9 Major depressive disorder, single episode, unspecified (principal); F10.229 Alcohol dependence with intoxication, unspecified; F10.239 Alcohol dependence with withdrawal, unspecified; R45.851 Suicidal ideations; G62.9 Polyneuropathy, unspecified; Y90.9 Presence of alcohol in blood, level not specified; K21.9 Gastro-esophageal reflux disease without esophagitis; G89.29 Other chronic pain; G40.909 Epilepsy, unspecified, not intractable, without status epilepticus; I10 Essential (primary) hypertension; M21.371 Foot drop, right foot; Z20.828 Contact with and (suspected) exposure to other viral communicable diseases; Z87.11 Personal history of peptic ulcer disease; Z86.711 Personal history of pulmonary embolism; Z79.01 Long term (current) use of anticoagulants; Z79.899 Other long term (current) drug therapy; Z88.8 Allergy status to other drugs, medicaments and biological substances
CPT/HCPCS: 10880

== ENCOUNTER 2020-08-18 12:14 | Emergency (ER) | payer OTHER ==
[~2020-08-18] VITALS: Ht 185.4 cm; Wt 64.0 kg
[2020-08-18 12:57] LABS: HEMATOCRIT 41.8 % (42.0-52.0); HEMOGLOBIN 13.6 gm/dL (14.0-18.0); MCH 27.8 pg (26.0-34.0); MCHC 32.5 g/dL (28.0-37.0); MCV 85.5 fL (80.0-100.0); RBC 4.89 mil/uL (4.50-6.00); RDW 20.8 % (10.5-14.5); WBC 6.1 thou/uL (4.0-11.0)
[2020-08-18 13:15] LABS: ANION GAP 14 mmol/L (7-16); BUN 6 mg/dL (7-18); CALCIUM 8.5 mg/dL (8.5-10.1); CHLORIDE 104 mmol/L (98-107); CO2 27 mmol/L (21-32); CREATININE 0.9 mg/dL (0.7-1.3); GLUCOSE 112 mg/dL (74-106); SODIUM 145 mmol/L (136-145); TROPONIN-I <0.06 ng/mL (<0.06)
[2020-08-18 13:16] LABS: POTASSIUM 2.9 mmol/L (3.5-5.1)
[2020-08-18] MEDS ORDERED: LEVOFLOXACIN750 MG PO (13:28)
--- NOTE | 2020-08-18 13:35 | EKG ---
[facility] [place] [address] ELECTROCARDIOGRAM REPORT Name: GIL VELEZ Room #: [facility]#: [id number] Admission: 08/18/20 Attend Phys: Discharge: Date of : 57 Report #: [id number] THIS REPORT FOR: cc: FAM - Family physician unknown FAM - Family physician unknown Gil Gonzales MD [facility] ~ THIS REPORT FOR: //name// [facility] ED Test Date: 2020-08-18 Test Time: 12:47:29 Pat Name: GIL VELEZ Department: Room: Gender: M Light Rail Operator: brianda saavedra : 1955 Requested By: Rickie Lance Order Number: [id number] MD: Gil Gonzales Measurements Intervals [place] Rate: 85 P: 55 SC: 147 QRS: 19 QRSD: 104 T: 72 QT: 388 QTc: 462 Interpretive Statements Sinus rhythm Low voltage, extremity leads Abnormal R-wave progression, early transition Compared to ECG 08/04/2020 14:03:22 No significant changes Electronically Signed On 08-18-2020 13:35:42 NETWORK SYSTEMS ANALYST by Gil Gonzales [email or web address] <ELECTRONICALLY SIGNED> By: Gil Gonzales MD, FACC 08/18/20 1335 1247 124 Gil Gonzales MD, [facility] /EPI
[2020-08-18 13:48] VITALS: BP 149/96
== END 2020-08-18 15:23 | disposition home or self-care (01) ==
LOC: ER 12:14
PROVIDERS: Emergency Medicine
DX: J18.9 Pneumonia, unspecified organism (principal); R10.9 Unspecified abdominal pain; F17.210 Nicotine dependence, cigarettes, uncomplicated; Z79.899 Other long term (current) drug therapy; Z88.8 Allergy status to other drugs, medicaments and biological substances

== ENCOUNTER 2020-09-24 10:56 | Emergency (ER) | payer OTHER ==
[~2020-09-24] VITALS: Ht 185.4 cm; Wt 59.0 kg
--- NOTE | ~2020-09-24 | EMS ---
[facility] [address] [place] [address] EMS Patient Care Report Name: JOVANA VELEZ Room #: REG DIAMOND Juarez#: [id number] Admission: 09/24/20 Attend Phys: Discharge: Date of : 57 Report #: [id number] THIS REPORT FOR: //name// Report Transmitted: 09/24/2020 11:28 EMS Care Summary [facility] Incident [id number] @ 09/24/2020 10:21 Incident Location [address] [place] [address] Patient JOVANA VELEZ Male, 65 Years 1955 Patient Address [address] [place] [address] Patient History Chronic Ischemic Heart Disease,Hypertension (HTN),Stroke/CVA,Alcohol Abuse,Myocardial Infarction (GA), Patient Allergies No known allergies, Patient Medications Keppra, Pantoprazole, Levofloxacin, Apixaban, Chief Complaint bilateral leg numbness Disposition Transported No Lights/[place] Dispatch Reason Stroke/CVA Transported To [facility] Narrative AOS to find patient seated on his couch. He states that since last night he has [facility] [address] [place] [address] EMS Patient Care Report Name: JOVANA VELEZ Room #: REG ER Scot.#: [id number] Admission: 09/24/20 Attend Phys: Discharge: Date of : 57 Report #: [id number] had increased numbness in his legs. The numbness has been progressively getting worse to the point that he feels that he needs to be seen at the ED. Patient has an extensive medical history and takes several medications on a regular basis. He states that the numbness is nothing new to his left leg but the right leg doesn't have the same issue. This is concerning to him, when the numbness wasn't going away is when he finally decided that it would be best to call 911 and be seen. Upon our arrival patient is A/OX4 with a GCS of 15. He is able to answer all of our questions appropriately. Vitals that are obtained on scene are noted to be WNL. He is then assisted to the cot and then secured via x4 safety straps and then moved to the unit and loaded in. Once inside the unit he is placed on the monitor and vitals are obtained through out the transport. No further interventions are done at this time. While en route patient had no further complaints nor complications, care was transferred to ED staff upon our arrival to the facility. Initial Vitals @10:40P: 102,SpO2: 99, @10:45P: 98,SpO2: 100, @10:44P: 96,R: 16,BP: 162/108,Pain: 0/10,GCS: 15,SpO2: 100,Revised Trauma: 12, @10:32P: 121,R: 16,BP: 156/112,Pain: 0/10,GCS: 15,SpO2: 99,Revised Trauma: 12, @10:35P: 112,SpO2: 97, @10:49P: 95,R: 16,BP: 160/106,Pain: 0/10,GCS: 15,SpO2: 100,Revised Trauma: 12, Assessments @10:32MENTAL:Person Oriented,Time Oriented,Place Oriented,Event Oriented,SKIN:HEENT:LUNG SOUNDS:ABDOMEN:PELVIS//GI:EXTREMITIES:Left Leg: Abnormal Sensation,Right Leg: Abnormal Sensation,PULSE:NEURO:No Abnormalities, Impression Pain (Non-Traumatic) Procedures @10:30ALS AssessmentResponse: UnchangedSucceeded Timeline 10:19,Call Received 10:19,Psap Call 10:21,Dispatched 10:22,En Route 10:24,Initial Responder On Scene 10:24,On Scene 10:25,At Patient 10:30,ALS Assessment,Response: UnchangedSucceeded, 10:32,BP: 156/112 M,PULSE: 121,RR: 16 R,SPO2: 99 Ox,ETCO2: ,BG: ,PAIN: 0,GCS: 15, [place] [address] EMS Patient Care Report Name: JOVANA VELEZ Room #: REG JudsonR.#: [id number] Admission: 09/24/20 Attend Phys: Discharge: Date of : 57 Report #: [id number] 10:33,Depart Scene 10:35,BP: / M,PULSE: 112,RR: R,SPO2: 97 Ox,ETCO2: ,BG: ,PAIN: ,GCS: , 10:40,BP: / M,PULSE: 102,RR: R,SPO2: 99 Ox,ETCO2: ,BG: ,PAIN: ,GCS: , 10:44,BP: 162/108 M,PULSE: 96,RR: 16 R,SPO2: 100 Ox,ETCO2: ,BG: ,PAIN: 0,GCS: 15, 10:45,BP: / M,PULSE: 98,RR: R,SPO2: 100 Ox,ETCO2: ,BG: ,PAIN: ,GCS: , 10:49,BP: 160/106 M,PULSE: 95,RR: 16 R,SPO2: 100 Ox,ETCO2: ,BG: ,PAIN: 0,GCS: 15, 10:52,At Destination 11:08,Call Closed Disclaimer v1.1 Copyright 2020 [employer] This EMS Care Summary contains data elements from the applicable legal record (which may be displayed differently). It is designed to provide pertinent information for the following purposes: continuity of care, clinical quality, and state data reporting. The complete legal record is available to ED staff and administrators of the receiving hospital in [employer]'s Patient Tracker. All data is provided "as is."
[~2020-09-24 10:56] MED LIST changes: +LEVOFLOXACIN750 MG PO
--- NOTE | 2020-09-24 12:03 | EKG ---
[address] [address] ELECTROCARDIOGRAM REPORT Name: GIL VELEZ Room #: [facility].R.#: [id number] Admission: Attend Phys: Discharge: Date of : 57 Report #: [id number] [facility] ED Test Date: 2020-09-24 Test Time: 11:55:26 Pat Name: GIL VELEZ Department: Room: Gender: Pneumatic Tube Operator: donaldo : 1955 Requested By: Geovanni Gastelum Order Number: [id number] MD: Gil Gonzales Measurements Intervals [place] Rate: 127 P: 63 UT: 149 QRS: 46 QRSD: 85 T: 66 QT: 308 QTc: 448 Interpretive Statements Sinus tachycardia Probable left atrial enlargement Compared to ECG 08/18/2020 12:47:29 Sinus rhythm no longer present Electronically Signed On 09-24-2020 12:03:12 SPACE SYSTEMS OPERATIONS SUPERINTENDENT by Gil Gonzales [email or web address] <ELECTRONICALLY SIGNED> By: Gil Gonzales MD, [facility] 09/24/20 1203 1155 1155 Gil Gonzales MD, FACC /EPI
[2020-09-24 12:39] LABS: APTT 25.7 Seconds (24.5-32.8); INR 1.1; PROTIME 11.4 Seconds (9.3-11.4)
[2020-09-24 12:40] LABS: ANION GAP 16 mmol/L (7-16); BUN 4 mg/dL (7-18); CHLORIDE 99 mmol/L (98-107); CO2 21 mmol/L (21-32); CREATININE 1.2 mg/dL (0.7-1.3); GLUCOSE 133 mg/dL (74-106); POTASSIUM 3.1 mmol/L (3.5-5.1); SODIUM 136 mmol/L (136-145)
[2020-09-24 12:50] LABS: ABSOLUTE NEUTROPHILS 11.3 thou/uL (1.4-8.2); BASOPHILS 0.8 % (0.0-2.0); EOSINOPHILS 0.3 % (0.0-3.0); HEMATOCRIT 40.5 % (42.0-52.0); HEMOGLOBIN 12.6 gm/dL (14.0-18.0); MCH 26.4 pg (26.0-34.0); MCHC 31.1 g/dL (28.0-37.0); MCV 84.7 fL (80.0-100.0); MONOCYTES 5.2 % (1.0-8.0); PLATELET COUNT 162 thou/uL (150-400); POLYS 82.7 % (36.0-66.0); RBC 4.78 mil/uL (4.50-6.00); WBC 13.6 thou/uL (4.0-11.0)
[2020-09-24 12:51] LABS: LIPASE 44 U/L (73-393); SGOT 24 U/L (15-37); SGPT 16 U/L (16-63); TOTAL BILIRUBIN 1.1 mg/dL (0.2-1.0); TOTAL PROTEIN 6.7 g/dL (6.4-8.2); TROPONIN-I <0.06 ng/mL (<0.06)
[2020-09-24 14:01] LABS: ANISOCYTOSIS 1+; LARGE PLATELETS OCCASIONAL; POIKILOCYTOSIS SLIGHT
[2020-09-24 15:34] VITALS: BP 147/98
== END 2020-09-24 15:30 | disposition home or self-care (01) ==
LOC: ER 10:56
PROVIDERS: Emergency Medicine
DX: E87.6 Hypokalemia (principal); E86.0 Dehydration; R56.9 Unspecified convulsions; M79.604 Pain in right leg; R20.0 Anesthesia of skin; M79.605 Pain in left leg; R20.2 Paresthesia of skin; F32.9 Major depressive disorder, single episode, unspecified; F17.210 Nicotine dependence, cigarettes, uncomplicated; Z88.8 Allergy status to other drugs, medicaments and biological substances; Z79.899 Other long term (current) drug therapy

== ENCOUNTER 2020-11-06 15:29 | Inpatient (IN) | payer OTHER ==
[~2020-11-06] VITALS: Ht 185.4 cm; Wt 62.4 kg
[2020-11-06 15:31] VITALS: BP 133/83
[2020-11-06 17:08] LABS: HEMATOCRIT 34.2 % (42.0-52.0); HEMOGLOBIN 10.7 gm/dL (14.0-18.0); MCH 24.9 pg (26.0-34.0); MCHC 31.1 g/dL (28.0-37.0); PLATELET COUNT 359 thou/uL (150-400); RBC 4.28 mil/uL (4.50-6.00); RDW 23.3 % (10.5-14.5); WBC 5.8 thou/uL (4.0-11.0)
[2020-11-06 17:27] LABS: APTT 22.2 Seconds (24.5-32.8); PROTIME 10.5 Seconds (9.3-11.4)
[2020-11-06 17:37] LABS: ANION GAP 15 mmol/L (7-16); BUN 6 mg/dL (7-18); CALCIUM 8.5 mg/dL (8.5-10.1); CHLORIDE 102 mmol/L (98-107); CO2 26 mmol/L (21-32); CREATININE 0.7 mg/dL (0.7-1.3); GLUCOSE 86 mg/dL (74-106); POTASSIUM 3.1 mmol/L (3.5-5.1); SODIUM 143 mmol/L (136-145)
[2020-11-06 17:38] LABS: ABSOLUTE NEUTROPHILS 1.6 thou/uL (1.4-8.2); ANISOCYTOSIS 2+; ATYPICAL LYMPHS 3 %; HYPOCHROMASIA 1+; PLATELET ESTIMATE NORMAL
[2020-11-06 17:39] LABS: OVALOCYTES OCCASIONAL; POIKILOCYTOSIS SLIGHT
--- NOTE | 2020-11-06 17:45 | NUR ---
CONSULTED TO PLACE A PIV, PATIENT HAS A HISTORY OF DIFFICULT IV ACCESS. IN ER WITH A GI BLEED- A MIDLINE WAS PLACED PER POLICY FOR IV ACCESS AND LABS DRAWN
[2020-11-06 17:47] LABS: SGOT 27 U/L (15-37); SGPT 17 U/L (16-63); TOTAL PROTEIN 6.7 g/dL (6.4-8.2); TROPONIN-I <0.06 ng/mL (<0.06)
[2020-11-06 20:15] LABS: URINE BILIRUBIN NEGATIVE (Negative); URINE BLOOD NEGATIVE (Negative); URINE CLARITY CLEAR; URINE COLOR YELLOW; URINE GLUCOSE-RANDOM* NEGATIVE (Negative); URINE KETONES NEGATIVE (Negative); URINE LEUKOCYTES-REFLEX NEGATIVE (Negative); URINE NITRITE-REFLEX NEGATIVE (Negative); URINE PROTEIN (DIPSTICK) NEGATIVE (Negative)
[2020-11-06 21:46] VITALS: BP 140/79
[2020-11-06 22:03] VITALS: BP 134/78
[2020-11-06 22:45] VITALS: BP 139/80
--- NOTE | 2020-11-07 03:53 | NUR ---
Arrived from ER around 2214. He is very irritable , impatient and uncooperative. He refused to answer some of admission questions/hx stating he is very tired , wants to be left alone and he's not answering anymore questions. Unable to verify home meds , he refused to answer. Refused to take off socks and refused skin assessment. BG checked at 231 = 56 , rechecked =54. PAINT SPRAY TENDER notified and stat BG draw = 63. 1/2 amp D 50 given and BG rechecked 138. Lorazepam 2 mg IV given to help calm down pt. He told PAINT SPRAY TENDER his chest hurts and requested for GI cocktail which was given to him. Kept NPO per order and will call GI consult later. IVF and protonix gtt. infusing. No bloody stool, no nausea or vomiting this shift. Voided per urinal. Bed alarm on for safety. Refused SCD's.
[2020-11-07 05:45] VITALS: BP 139/84
[2020-11-07 06:23] LABS: HEMATOCRIT 30.2 % (42.0-52.0); HEMOGLOBIN 9.5 gm/dL (14.0-18.0); MCH 24.9 pg (26.0-34.0); MCHC 31.6 g/dL (28.0-37.0); MCV 78.8 fL (80.0-100.0); RBC 3.82 mil/uL (4.50-6.00); RDW 22.8 % (10.5-14.5); WBC 5.4 thou/uL (4.0-11.0)
[2020-11-07 06:26] LABS: CALCIUM 7.8 mg/dL (8.5-10.1); CREATININE 0.9 mg/dL (0.7-1.3); POTASSIUM 3.5 mmol/L (3.5-5.1)
--- NOTE | 2020-11-07 07:06 | EKG ---
[address] [place] [address] ELECTROCARDIOGRAM REPORT Name: GIL VELEZ Room #: 359-P ADM IN M.R.#: [id number] Admission: 11/06/20 Attend Phys: Taye Sargent Discharge: Date of : 57 Report #: [id number] [facility] ED Test Date: 2020-11-06 Test Time: 15:46:57 Pat Name: GIL VELEZ Department: Room: 359 Gender: M Press Puller: NASRA : 1955 Requested By: Robert Mix Order Number: [id number] MD: Gil Gonzales Measurements Intervals [place] Rate: 75 P: 44 MI: 152 QRS: 21 QRSD: 101 T: 56 QT: 404 QTc: 452 Interpretive Statements Sinus rhythm Compared to ECG 09/24/2020 11:55:26 Sinus tachycardia no longer present Electronically Signed On 11-07-2020 7:06:18 POWDER NIPPER by Gil Gonzales [email or web address] <ELECTRONICALLY SIGNED> By: Gil Gonzales MD, [facility] 11/07/20 0706 1546 1546 Gil Gonzales MD, FACC /EPI
[2020-11-07 07:45] VITALS: BP 123/90
--- NOTE | 2020-11-07 12:35 | NUR ---
INITIAL ASSESSMENT: Received consult. SW reviewed chart and spoke with nursing and attending physician. Pt was admitted from home due to GI bleed. Pt placed in Enhanced Isolation to r/o COVID-19. Pt's test is pending. GI consulted. SW spoke with pt via phone. Introduced role of SW. Pt is alert/orientated x 4. Pt states he lives at home and prior to admission was independent with ADLs. Pt goes to the [facility] in [place] for primary care. Pt does not know the name of his PCP. Pt has used [facility] in the past. Pt has been to [facility] for inpt acute rehab. No weekend discharge anticipated. SW is following to assist as needed with discharge planning.
[2020-11-07 14:59] VITALS: BP 136/83
[2020-11-07 19:41] VITALS: BP 125/70
[2020-11-07 22:48] VITALS: BP 118/80
--- NOTE | 2020-11-08 01:38 | NUR ---
PT RESTING IN BED SINCE BEGINNING OF SHIFT, PT REMAINING IN DARK ROOM. PT YELLING AT NURSE FOR MAKING NOISE, BANGING, TURNING ON LIGHT. PT REMAINS ON CIWA AND PRN PO ATIVAN CONTINUES TO BE GIVEN. PT IS IRRITABLE AGITATED ANXIOUS DIAPHORETIC TREMORS INCONTINENT AT TIMES. IVF INTACT.
[2020-11-08 05:05] VITALS: BP 128/85
--- NOTE | 2020-11-08 06:38 | NUR ---
PT COMPLAINING OF ABD AND HEARTBURN PAIN, PRN PROVIDED. PT ALSO REQUESTED COFFEE AT THIS TIME.
[2020-11-08 07:11] VITALS: BP 137/97
[2020-11-08 11:13] LABS: HEMATOCRIT 29.7 % (42.0-52.0); HEMOGLOBIN 9.2 gm/dL (14.0-18.0)
[2020-11-08] MEDS ORDERED: PROTONIX40 M4 PO (12:08)
[2020-11-08 12:43] VITALS: BP 137/97
--- NOTE | 2020-11-12 18:06 | PATH ---
[facility] [place] [address] [place] [address] PATHOLOGY RPT PROCEDURE Name: GIL VELEZ Room #: 359-P DIS IN M.R.#: [id number] Admission: 11/06/20 Date of : 57 Discharge: 11/08/20 Report #: [id number] Path Case #: [id number] [facility] Accession Number: [id number] . 01 Material submitted: . PART A: pyloric antrum - ANTRUM R/O H. PYLORI PART B: esophagus - SEVERE ESOPHAGITIS R/O FISHMAN'S . 01 Clinical history: . MELENA,HEMATEMESIS ESOPHAGITIS STRICTURE,HIATAL HERNIA . 02 Diagnosis: A. Stomach "antrum", endoscopic biopsy: - Gastric antral mucosa with features of reactive gastropathy and mild background chronic inflammation. - Negative for active inflammation, intestinal metaplasia, dysplasia, and malignancy. - Negative for Helicobacter pylori. . B. Esophagus, endoscopic biopsy: - Fragments of esophageal squamous mucosa with ulceration, reactive/reparative epithelial change, and marked acute and chronic inflammation. - Negative for intestinal metaplasia, dysplasia, and malignancy. - Please see comment. LBQ 11/12/2020 1731 Local . 02 Comment: The esophageal biopsy (specimen B) shows small fragments of esophageal squamous epithelium, with ulceration, fibrin deposition, and marked acute and chronic inflammation. There is degenerative/reparative change of the epithelium. There is no evidence of fungal infection, *CMV, *HSV1, or *HSV2 by special, and immunohistochemical stains, respectively. (MLK/db; 11/12/2020) . 02 Electronically signed: . Elliott Sandoval MD, Pathologist NPI- [id number] . 01 Gross description: . A. The specimen is received in formalin, labeled "Gil Velez, biopsy antrum, R/O H. pylori". Received are two segments of pale rudolph soft tissue ranging in size from 0.2 to 0.3 cm in maximum dimensions. The specimen is submitted entirely in cassette A1. . B. The specimen is received in formalin, labeled "Gil Velez, biopsy [address] [address] PATHOLOGY RPT PROCEDURE Name: GIL VELEZ Room #: 359-P DIS IN M.R.#: [id number] Admission: 11/06/20 Date of : 57 Discharge: 11/08/20 Report #: [id number] Path Case #: [id number] severe esophagitis, R/O Fishman's". Received are two segments of pale rudolph soft tissue ranging in size from 0.1 to 0.3 cm in maximum dimensions. The specimen is submitted entirely in cassette B1. (CAA; 11/10/2020) QAC/QAC 11/10/2020 1054 Local . 02 Microscopic: . Immunohistochemical stain results (properly controlled) Helicobacter pylori (A1) - Negative for organisms HSV1 (B1) - Negative HSV2 (B1) - Negative CMV (B1) - Negative . Special stain results (properly controlled) PAS-D - Negative for fungal and hyphal forms . *This test was developed and its performance characteristics determined by [facility]. It has not been cleared or approved by the U.S. Food and Drug Administration. The FDA has determined that such clearance or approval is not necessary. This test is used for clinical purposes. It should not be regarded as investigational or for research. This laboratory is certified under the Clinical Laboratory Improvement Amendments of 1988 (CLIA) as qualified to perform high complexity clinical laboratory testing. . 02 Pathologist provided ICD-10: K31.9, K29.50, K22.10, K20.90 . 02 CPT . 625855, 403119, I11546, B39343, 558796 Specimen Comment: Report sent to Performed at: [address], [place] [id number] MD Choco Raphael MD Phone: [phone] Performed at: [address] [id number] MD Terese Mccain MD Phone: [phone]
== END 2020-11-08 14:50 | disposition home or self-care (01) | DRG 369 ==
LOC: ER 15:29 → 3W 19:22 → EROBS 19:22 → 3W 22:03
PROVIDERS: Nurse Practitioner Family; Physician Assistant; ADMIT Hospitalist; ATTEND Hospitalist
DX: K20.91 Esophagitis, unspecified with bleeding (principal); R65.10 Systemic inflammatory response syndrome (SIRS) of non-infectious origin without acute organ dysfunction; K62.89 Other specified diseases of anus and rectum; K22.2 Esophageal obstruction; Z20.822 Contact with and (suspected) exposure to COVID-19; F32.9 Major depressive disorder, single episode, unspecified; K22.70 Barrett's esophagus without dysplasia; I10 Essential (primary) hypertension; G89.29 Other chronic pain; G40.909 Epilepsy, unspecified, not intractable, without status epilepticus; M54.5 Low back pain; F41.9 Anxiety disorder, unspecified; F17.210 Nicotine dependence, cigarettes, uncomplicated; F10.229 Alcohol dependence with intoxication, unspecified; E87.6 Hypokalemia; K44.9 Diaphragmatic hernia without obstruction or gangrene; Z88.8 Allergy status to other drugs, medicaments and biological substances; Z86.718 Personal history of other venous thrombosis and embolism; Z79.01 Long term (current) use of anticoagulants; Z86.711 Personal history of pulmonary embolism
CPT/HCPCS: 10879; 27000; 62110; 62900; 70005

== ENCOUNTER 2020-11-12 09:59 | Inpatient (IN) | payer OTHER ==
[2020-11-12] VITALS (18 sets, daily range): BP systolic 124–157; BP diastolic 69–99
[~2020-11-12] VITALS: Ht 188 cm; Wt 62.0 kg
--- NOTE | ~2020-11-12 | EMS ---
[facility] [address] [place] [address] EMS Patient Care Report Name: JOVANA VELEZ Room #: 170-2 ADM IN M.R.#: [id number] Admission: 11/12/20 Attend Phys: Aldair Keller MD Discharge: Date of : 57 Report #: [id number] THIS REPORT FOR: //name// Report Transmitted: 11/12/2020 18:20 EMS Care Summary [facility] Incident [id number] @ 11/12/2020 09:32 Incident Location [address] [place] [address] [place] [address] Patient JOVANA VELEZ Male, 65 Years 1955 Patient Address [address] [place] [address] [place] [address] Patient History Chronic Ischemic Heart Disease,Hypertension (HTN),Stroke/CVA,Alcohol Abuse,Myocardial Infarction ([place]), Patient Allergies Aspirin, Patient Medications Pantoprazole, Eliquis, Apixaban, Keppra, Levofloxacin, Chief Complaint FALL Disposition Transported No Lights/[place] Dispatch Reason Convulsions/Seizure Transported To [facility] Narrative DISPATCHED EMERGENT RESPONDED EMERGENT ON SEIZURES. ARRIVED ON SCENE WITHOUT [facility] [address] [place] [address] EMS Patient Care Report Name: JOVANA VELEZ Room #: 170-2 ADM IN Scot.#: [id number] Admission: 11/12/20 Attend Phys: Aldair Keller MD Discharge: Date of : 57 Report #: [id number] INCIDENT. UPON ARRIVAL PATIENT WAS FOUND SEATED IN CHAIR IN FRONT LOBBY ALERT AND ORIENTED X4 STATING HE HAD A FALL AND BELIEVES HE HAD A SEIZURE. PATIENT REPORTS RIGHT ARM PAIN AFTER THE FAILL, CMS INTACT X4, NO DEFORMITIES, BRUISING OR CREPITUS. PATIENT STATES THAT HE HIT HIS ARM BUT DENIES HITTING HIS HEAD. DENIES HEAD PAIN, NECK PAIN, STATES HE IS NOT ON BLOOD THINNERS AT THIS TIME. PATIENT REQUESTING TRANSPORT TO [facility]. PATIENT ASSISTED AND PIVOTED ONTO STRETCHER. SECURED WITH ALL RESTRAINTS AND TAKEN TO AMBULANCE. EN ROUTE PATIENT DENIES ANY NEW COMPLAINTS. NO CHANGE IN CURRENT COMPLAINTS. VITALS MONITORED CONTINUOUSLY. RADIO REPORT CALLED TO ED. UPON ARRIVAL TO ED PATIENT TAKEN DIRECTLY TO ROOM 2 WHERE PATIENT REPORT GIVEN DIRECTLY TO RN AT BEDSIDE. PATIENT ABLE TO SCOOT FROM STRETCHER TO BED WITHOUT DIFFICULTY. PATIENT CARE TRANSFERRED DIRECTLY TO RN AT BEDSIDE. PATIENT IN STABLE CONDITION AT TRANSFER OF CARE. Initial Vitals @09:41P: 89, @09:53P: 91,CO: 1,SpO2: 99, @09:43P: 92,SpO2: 100, @09:41P: 97,SpO2: 100, @09:53P: 91,CO: 1,SpO2: 99, @09:42P: 98, @09:40P: 97,R: 18,BP: 158/90,GCS: 15,Glucose: 167,SpO2: 99,Revised Trauma: 12, @09:53P: 94,R: 18,BP: 164/90,Pain: 2/10,GCS: 15,Glucose: 167,SpO2: 99,Revised Trauma: 12, @09:48P: 95,SpO2: 100, @09:40P: 98,SpO2: 100, Assessments @09:36MENTAL:Person Oriented,Time Oriented,Event Oriented,Place Oriented,SKIN:HEENT:Eyes: Left Pupil: 4-mm,Eyes: Right Pupil: 4-mm,Head/Face: No Abnormalities,Neck/Airway: No Abnormalities,LUNG SOUNDS:General: No Abnormalities,ABDOMEN:General: No Abnormalities,PELVIS//GI:No Abnormalities,EXTREMITIES:Left Arm: No Abnormalities,Right Arm: No Abnormalities,Left Leg: No Abnormalities,Right Leg: No Abnormalities,PULSE:NEURO:No Abnormalities, Impression Extremity Pain Procedures @09:403-Lead ECGResponse: UnchangedSucceeded@09:36ALS AssessmentResponse: [place] [address] EMS Patient Care Report Name: JOVANA VELEZ Room #: 170-2 ADM IN [facility].#: [id number] Admission: 11/12/20 Attend Phys: Aldair Keller MD Discharge: Date of : 57 Report #: [id number] Timeline 09:30,Call Received 09:30,Psap Call 09:32,Dispatched 09:33,En Route 09:34,Initial Responder On Scene 09:34,On Scene 09:35,At Patient 09:36,ALS Assessment,Response: UnchangedSucceeded, 09:39,Depart Scene 09:40,3-Lead ECG,Response: UnchangedSucceeded, 09:40,BP: 158/90 M,PULSE: 97,RR: 18 R,SPO2: 99 Ox,ETCO2: ,B,PAIN: ,GCS: 15, 09:40,BP: / M,PULSE: 98,RR: R,SPO2: 100 Ox,ETCO2: ,BG: ,PAIN: ,GCS: , 09:41,BP: / M,PULSE: 97,RR: R,SPO2: 100 Ox,ETCO2: ,BG: ,PAIN: ,GCS: , 09:41,BP: / M,PULSE: 89,RR: R,SPO2: Ox,ETCO2: ,BG: ,PAIN: ,GCS: , 09:42,BP: / M,PULSE: 98,RR: R,SPO2: Ox,ETCO2: ,BG: ,PAIN: ,GCS: , 09:43,BP: / M,PULSE: 92,RR: R,SPO2: 100 Ox,ETCO2: ,BG: ,PAIN: ,GCS: , 09:48,BP: / M,PULSE: 95,RR: R,SPO2: 100 Ox,ETCO2: ,BG: ,PAIN: ,GCS: , 09:53,BP: / M,PULSE: 91,RR: R,SPO2: 99 Ox,ETCO2: ,BG: ,PAIN: ,GCS: , 09:53,BP: / M,PULSE: 91,RR: R,SPO2: 99 Ox,ETCO2: ,BG: ,PAIN: ,GCS: , 09:53,BP: 164/90 M,PULSE: 94,RR: 18 R,SPO2: 99 Ox,ETCO2: ,B,PAIN: 2,GCS: 15, 09:54,At Destination 10:16,Call Closed Disclaimer v1.1 Copyright 2020 [email or web address] This EMS Care Summary contains data elements from the applicable legal record (which may be displayed differently). It is designed to provide pertinent information for the following purposes: continuity of care, clinical quality, and state data reporting. The complete legal record is available to ED staff and administrators of the receiving hospital in [employer] Patient Tracker. All data is provided "as is."
[~2020-11-12 09:59] MED LIST changes: +PROTONIX40 M4 PO
[2020-11-12 10:33] LABS: ABSOLUTE NEUTROPHILS 1.9 thou/uL (1.4-8.2); BASOPHILS 2.1 % (0.0-2.0); EOSINOPHILS 1.3 % (0.0-3.0); HEMATOCRIT 35.6 % (42.0-52.0); HEMOGLOBIN 11.2 gm/dL (14.0-18.0); LYMPHOCYTES 38.6 % (24.0-44.0); MCH 25.3 pg (26.0-34.0); MCHC 31.4 g/dL (28.0-37.0); MCV 80.7 fL (80.0-100.0); MONOCYTES 7.7 % (1.0-8.0); PLATELET COUNT 280 thou/uL (150-400); POLYS 50.3 % (36.0-66.0); RBC 4.41 mil/uL (4.50-6.00); RDW 24.7 % (10.5-14.5); WBC 3.7 thou/uL (4.0-11.0)
[2020-11-12 10:57] LABS: ALBUMIN 2.9 g/dL (3.4-5.0); ANION GAP 9 mmol/L (7-16); BUN 6 mg/dL (7-18); CALCIUM 8.2 mg/dL (8.5-10.1); CHLORIDE 107 mmol/L (98-107); CO2 28 mmol/L (21-32); CREATININE 0.9 mg/dL (0.7-1.3); DIRECT BILIRUBIN 0.1 mg/dL (<0.1-0.2); GLUCOSE 86 mg/dL (74-106); SGOT 24 U/L (15-37); SGPT 15 U/L (30-65); SODIUM 144 mmol/L (136-145); TOTAL BILIRUBIN 0.4 mg/dL (0.2-1.0); TOTAL PROTEIN 6.3 g/dL (6.4-8.2); TROPONIN-I <0.06 ng/mL (<0.06)
[2020-11-12 11:01] LABS: POTASSIUM 2.7 mmol/L (3.5-5.1)
[2020-11-12 11:16] LABS: PROTIME 10.8 Seconds (9.3-11.4)
--- NOTE | 2020-11-12 12:06 | EKG ---
[address] [address] ELECTROCARDIOGRAM REPORT Name: GIL VELEZ [id number] Admission: 11/12/20 Attend Phys: Discharge: Date of : 57 Report #: [id number] [facility] ED Test Date: 2020-11-12 Test Time: 10:29:52 Pat Name: GIL VELEZ Department: Room: Gender: M Living Nurse: harriet : 1955 Requested By: González [place] Order Number: [id number] MD: Gil Gonzales Measurements Intervals [place] Rate: 70 P: 63 PA: 149 QRS: 47 QRSD: 98 T: 59 QT: 421 QTc: 455 Interpretive Statements Sinus rhythm Compared to ECG 11/06/2020 15:46:57 No significant changes Electronically Signed On 11-12-2020 12:06:28 MAGNETIC TAPE COMPOSER OPERATOR by Gil Gonzales [email or web address] <ELECTRONICALLY SIGNED> By: Gil Gonzales MD, [facility] 11/12/20 1206 1029 1029 Gil Gonzales MD, FACC /EPI
[2020-11-12 12:17] LABS: ANISOCYTOSIS 2+; PLATELET ESTIMATE NORMAL; SCHISTOCYTES 1+
--- NOTE | 2020-11-12 13:41 | NUR ---
DR MART AT BEDSIDE
[2020-11-12] MEDS ORDERED: CREON DR 36,001 EACH PO (16:47)
--- NOTE | 2020-11-12 18:57 | NUR ---
IV INFILTRATED. IV TEAM STATES THEY CANNOT PLACE ANOTHER LINE
[2020-11-13] VITALS (44 sets, daily range): BP systolic 111–156; BP diastolic 63–104
--- NOTE | 2020-11-13 02:28 | NUR ---
REPORT RECEIVED FROM ED NURSE. DENIES ANY SOA, PAIN, N/V. PATIENT IS A/OX4. AFEBRILE. VSS. ATTACHED TO THE MONITOR. BATH GIVEN. NO S/S OF ETHO WITHDRAWAL. DENIES NEEDS. WILL KEEP MONITORING.
[2020-11-13 05:44] LABS: HEMOGLOBIN 10.1 gm/dL (14.0-18.0); MCH 25.8 pg (26.0-34.0); MCHC 31.6 g/dL (28.0-37.0); MCV 81.6 fL (80.0-100.0); RBC 3.93 mil/uL (4.50-6.00); RDW 24.2 % (10.5-14.5); WBC 5.4 thou/uL (4.0-11.0)
[2020-11-13 06:06] LABS: CALCIUM 7.7 mg/dL (8.5-10.1); CREATININE 0.8 mg/dL (0.7-1.3); MAGNESIUM 1.4 mg/dL (1.8-2.4)
[2020-11-13 06:08] LABS: POTASSIUM 3.8 mmol/L (3.5-5.1)
--- NOTE | 2020-11-13 09:14 | NUR ---
cm tried calling pt sister, no answer. left message requesting call back.
--- NOTE | 2020-11-13 18:45 | NUR ---
CIWA-0, NO TREMORS OR SEIZURES. VERY PLEASANT, COOPERATIVE. DR. DEJESUS AND DR. MATAMOROS PRESENT TO SEE PT. POTASSIUM AND MAGNESIUM REPLACED WITH ONE TIME ORDERS. PT STATING THAT HE DOESN'T WANT TO GO BACK HOME (TO APARTMENT) SINCE HE RESIDES ALONE. HE WANTS TO GO TO ASSISTED LIVING AFTER DISCHARGE TO HELP HIM TO AVOID ALCOHOL. COMMUNICATED INFORMATION TO SUBHASH, CASE MANAGEMENT.
--- NOTE | 2020-11-14 04:57 | NUR ---
ASSUMED PT CARE AT 1900. VSS. PT A&0X4. COMPLAINED OF PAIN WHICH WAS MANAGED PER MAR. PT RESTED SOME OVER NOC. HE COULDNT GET QUITE COMFORTABLE. HE IS HOWEVER STABLE. NO ISSUES, RIGHT IJ IV RE-DRESSED THIS SHIFT, CIWA =0 THIS SHIFT. WILL CONTINUE TO MONITOR.
[2020-11-14 05:18] LABS: HEMATOCRIT 29.9 % (42.0-52.0); HEMOGLOBIN 9.3 gm/dL (14.0-18.0); MCH 25.1 pg (26.0-34.0); MCV 81.1 fL (80.0-100.0); RBC 3.68 mil/uL (4.50-6.00); RDW 23.8 % (10.5-14.5); WBC 4.9 thou/uL (4.0-11.0)
[2020-11-14 05:41] LABS: CALCIUM 7.6 mg/dL (8.5-10.1); CREATININE 0.6 mg/dL (0.7-1.3); MAGNESIUM 1.5 mg/dL (1.8-2.4); POTASSIUM 3.4 mmol/L (3.5-5.1)
[2020-11-14 08:56] VITALS: BP 151/91
[2020-11-14 11:53] VITALS: BP 133/82
--- NOTE | 2020-11-14 13:07 | NUR ---
Met with patient he resides in independent apt. He [facility]. He admits with ETOH abuse. Patient has a walker, cane and wc at home. He prev used cane but post this admission therapy recommends walker. Patient wants to discharge to assisted living. he reports he has been drinking ETOH 2 shots a week for his pain. he feels more structured enviroment will assist him not to drink. Discussed prev in May casemgt assisted with resources for assisted living. Reviewed cannot dc to assisted living as it is a move. Patient reports he [facility] a SW [facility] who has been assisting him. Casemgr left message at the [facility] for return call. Patient cannot recall SW name and has no number for her. Gave patient resource information for assisted living. Dr Keller sp with therapy and patient may benefit from acute rehab stay. Patient has been skilled at [facility] and [facility]. Patient reports not a good stay at [facility]. He has been patient on acute [facility] rehab and hopeful to transition to [facility]. [facility] accepting for discharge. Casemgt following.
--- NOTE | 2020-11-14 16:13 | NUR ---
ASSUMED CARE AT 0700. PATIENT PROGRESSING TOWARDS THE PLAN OF CARE EVIDENCED BY LACK OF SEIZURE ACTIVITY OR SIGNS/SYMPTOMS OF ALCOHOL WITHDRAWAL. AWAITING INFORMATION TO TRANSFER TO ASSISTED LIVING.
[2020-11-14 16:30] VITALS: BP 126/79
--- NOTE | 2020-11-14 17:36 | NUR ---
FAXED REFERRAL TO [facility] HH SPOKE WITH [facility] IN INTAKE THEY CAN ACCEPT BUT PT REFUSED HH IN THE PAST. FAXED REFERRAL TO [facility] WILL F/U WITH LORRAINE IN ADM ON FRIDAY 11/17. FAXED REFERRAL TO [facility] WILL F/U ALSO WITH THEM ON FRIDAY 11/17.
[2020-11-14 20:30] VITALS: BP 131/74
[2020-11-15] VITALS (7 sets, daily range): BP systolic 92–160; BP diastolic 61–76
[2020-11-15 04:40] LABS: HEMATOCRIT 31.3 % (42.0-52.0); HEMOGLOBIN 10.2 gm/dL (14.0-18.0); MCHC 32.6 g/dL (28.0-37.0); MCV 79.9 fL (80.0-100.0); RBC 3.91 mil/uL (4.50-6.00); RDW 23.9 % (10.5-14.5); WBC 7.4 thou/uL (4.0-11.0)
[2020-11-15 05:03] LABS: CALCIUM 8.3 mg/dL (8.5-10.1); CREATININE 0.7 mg/dL (0.7-1.3); MAGNESIUM 1.5 mg/dL (1.8-2.4); POTASSIUM 3.4 mmol/L (3.5-5.1)
--- NOTE | 2020-11-15 19:10 | NUR ---
complains of pain in back, pain medication given and worked. bed rest, calm and cooperative.
--- NOTE | 2020-11-16 03:09 | NUR ---
Assumed pt care at 1900. A/OX4,VSS. C/o pain to back/neck/chest non cardiac LOP 05/29 medicated with Morphine per EMAR with relief reported. Pt reports gets up with cane/RW though hasn't gotten up this shift. Voiding per urinal this shift. No tremors or signs of withdrawals noted,will continue to monitor pt. Fall precauitons in place,calls approp for help.
[2020-11-16 05:23] VITALS: BP 111/67
[2020-11-16 07:41] VITALS: BP 112/73
[2020-11-16 10:54] LABS: ABSOLUTE NEUTROPHILS 3.1 thou/uL (1.4-8.2); BASOPHILS 0.8 % (0.0-2.0); EOSINOPHILS 2.6 % (0.0-3.0); HEMATOCRIT 30.2 % (42.0-52.0); HEMOGLOBIN 9.5 gm/dL (14.0-18.0); LYMPHOCYTES 30.5 % (24.0-44.0); MCH 25.2 pg (26.0-34.0); MCHC 31.4 g/dL (28.0-37.0); MCV 80.3 fL (80.0-100.0); MONOCYTES 10.6 % (1.0-8.0); PLATELET COUNT 196 thou/uL (150-400); POLYS 55.5 % (36.0-66.0); RBC 3.76 mil/uL (4.50-6.00); RDW 24.1 % (10.5-14.5); WBC 5.7 thou/uL (4.0-11.0)
[2020-11-16 11:07] LABS: ALBUMIN 2.5 g/dL (3.4-5.0); CALCIUM 8.3 mg/dL (8.5-10.1); CREATININE 0.8 mg/dL (0.7-1.3); POTASSIUM 3.5 mmol/L (3.5-5.1); TOTAL BILIRUBIN 0.4 mg/dL (0.2-1.0); TOTAL PROTEIN 5.8 g/dL (6.4-8.2)
[2020-11-16 13:28] LABS: ANISOCYTOSIS 3+
[2020-11-16 15:00] VITALS: BP 112/73
--- NOTE | 2020-11-16 15:35 | NUR ---
ASSUMED CARE OF PATIENT AT SHIFT CHNAGE. ASSESSMENT CHARTED. MEDICATIONS ADMINISTERED PER EMAR; REFUSED SOME; PREFERS MEDS CRUSHED S/T ESOPHAGEAL DISCOMFORT. PATIENT IS A&OX3-4 WITH SOME CONFUSION AND FORGETFULNESS. VOICES PAIN DALTON. IN THROAT AND ABDOMINAL REGION. PO PAIN ANALGESIC ADMINISTERED. PATIENT STATES "NOT FEELING WELL THIS DAY". RECHECKING LABS PATIENT TOLERATES; PATIENT REFUSED 0900 LAB DRAW. PATIENT SLEEPING MOST SHIFT. DENIES OTHER NEEDS. WILL CONTINUE TO MONITOR
[2020-11-16 19:34] VITALS: BP 134/77
--- NOTE | 2020-11-17 04:48 | NUR ---
Pt. rested quietly at intervals during the night when checked on during frequent rounds. He was given pain meds (see emar) for c/o generalized pain with some relief noted. Bed alarm is on.
[2020-11-17 07:59] VITALS: BP 118/74
--- NOTE | 2020-11-17 10:18 | NUR ---
NEITHER [facility] OR [facility] ARE ACCEPTING OF PT. CM TO NOTIFY PT AND SEE TO WHERE ELSE PT MIGHT WANT REFERRALS SENT FOR REVIEW FOR POSSIBLE ADMISSION. PA SW [phone]. CM TO FOLLOW INDICATED WITH DC PLANNING.
--- NOTE | 2020-11-17 13:35 | NUR ---
Received awake on bed. Due medications given as prescribed, crushed as requested by patient; swallow w/o difficulty. On room air. Vital signs stable. On MS, not on telemetry; no complains and signs of chest pain, crushing sensation and heaviness. Assisted in ADLs.
[2020-11-17 16:19] VITALS: BP 118/76
[2020-11-17 19:58] VITALS: BP 120/78
--- NOTE | 2020-11-18 05:50 | NUR ---
Assumed pt care at 1900. A/OX4,VSS. C/o pain allover medicated per EMAR with relief reported. Continent of urine voiding per urinal at NOC. Denies N/V. Fall precautions in place,calls approp for help.
[2020-11-18 07:36] VITALS: BP 126/73
--- NOTE | 2020-11-18 15:39 | NUR ---
CM AWAITINF CALL FROM OFFCE OF [facility] TO DISCUSS OPTIONS FOR [facility] FOR ACUTE REHAB. CM MET WITH PT AT BEDSIDE THIS DAY AND INDICATED THAT THE TWO SKILLED FACILITIES AREN'T ABLE TO ACCEPT AND PT WAS AGREEABLE WITH REFERRALS BEING SENT TO [facility] AND [facility]. REFERRALS SENT. CM FOLLOWING REGARDING DC PLANNING.
[2020-11-18 17:01] VITALS: BP 129/79
--- NOTE | 2020-11-18 17:48 | NUR ---
FAXED REFERRAL TO [facility] RECEIVED CONFIRMATION AND LEFT MSG WITH ZBIGNIEW IN ADM WILL F/U WITH FACILITY IN THE MORNING. FAXED REFERRAL TO [facility] RECEIVED CONFIRMATION WILL F/U WITH JAYDON IN ADM TOMORROW.
--- NOTE | 2020-11-18 18:27 | NUR ---
ASSUMED CARE OF PT AT SHIFT CHANGE. ASSESSMENTS CHARTED. MEDS GIVEN PER NOV. PT A&OX4, C/O PAIN TREATED WITH IV AND PO MEDS WITH PARTIAL RELIEF. PLAN FOR [place] T[place]ROW [place] [facility]. WILL CONTINUE TO MONITOR FOR CHANGE AND FOLLOW POC.
[2020-11-18 20:45] VITALS: BP 130/69
--- NOTE | 2020-11-19 03:27 | NUR ---
Assumed pt care at 1900. A/OX4, with forgetfulness noted. VSS.C/o pain all over medicated per EMAR with relief noted. Pt able to rest for most part of the shift. Voiding per urine, medicated with Miralax at HS for no Bm in 4 days no results yet but pt passing gas. Fall precautions in place,calls approp for help. Up with assist of 1/cane. Will continue to monitor pt.
[2020-11-19 07:07] VITALS: BP 125/83
--- NOTE | 2020-11-19 13:37 | NUR ---
CM CALLED NE OFFICE OF COMMUNITY CARE TO LOOK INTO INITIATING AUTH FOR ACUTE [facility]AHB AT [facility] OR OR [facility]. GATITO INDICATED THAT PT ISN'T APPROPRIATE FOR ACUTE REHAB LEVEL OF CARE AND THEY WOULDN'T AUTH IT. DIRECTED TO TO MORE SKILLED FACILITIES THROUGH PT'S MEDICARE NOT HIS [facility] INSURANCE. REFERRAL SENT TO [facility]. AWAITING REVIEW AND RESPONSE.
--- NOTE | 2020-11-19 16:21 | NUR ---
FAXED REFERRAL TO [facility] RECEIVED CONFIRMATION AND LEFT MSG WITH CLARY IN ADM. DP TO FOLLOW.
[2020-11-19 19:52] VITALS: BP 128/79
--- NOTE | 2020-11-19 20:09 | NUR ---
Assumed pt care this am, Vs stable. Pain is managed with medication, partial relief is noted. Pt still has not had a bm, education done regarding pain medication, movement, had having a bm. Uses the urinal, no signs of ETOH withdrawal, pt is pleasant and compliant with the plan oc care. Awaiting authorization for placement. endorsed to the night nurse.
--- NOTE | 2020-11-20 05:06 | NUR ---
Assumed pt care at 1900. A/OX4,VSS.C/o pain allover medicated per EMAR with some relief reported. Pt questioning dc process/time today and will be updated accordingly if authorization goes through. Pt has been voiding per urinal and hasn't gotten out of bed this shift. Fall precautions in place,calls for help as needed. Will continue to monitor pt.
[2020-11-20 07:52] VITALS: BP 125/74
--- NOTE | 2020-11-20 09:28 | NUR ---
[facility] ISN'T ABLE TO ACCEPT PT FOR ADMISSION RELATED TO HISTORY. REFERRALS TO BE SENT TO [facility] FOR REVIEW FOR POSSIBLE ADMISSION UNDER PT'S MEDICARE BENEFIT. CM TO FOLLOW INDICATED WITH DC PLANNING.
[2020-11-20] MEDS ORDERED: CYMBALTA30 MG PO (10:28)
[2020-11-20] MEDS ORDERED: K-DUR10 MEQ PO (10:28)
[2020-11-20] MEDS ORDERED: MAGOX 400400 MG PO (10:28)
[2020-11-20] MEDS ORDERED: COLACE100 MG PO (10:56)
[2020-11-20] MEDS ORDERED: VITAMIN B-1100 M2 PO (10:56)
[2020-11-20] MEDS ORDERED: CLONAZEPAM 0.50.5 M1 PO (10:56)
[2020-11-20] MEDS ORDERED: TRAMADOL 50 MG50 MG PO (11:00)
--- NOTE | 2020-11-20 14:03 | NUR ---
ASSUMED CARE OF PATIENT AT 0700. ASSESSMENT CHARTED. MEDICATIONS ADMINISTERED PER EMAR. VSS. PATIENT IS A&OX4 VOICING C/O NEEDING TO GO HOME SOON "TO PAY RENT AND GO TO THE BANK". VOICING PAIN ALSO GENERALIZED. PRN TRAMADOL ADMINISTERED NEEDED. PATIENT VOICED "CHEST PAIN" AT APPROX. 1330. VITALS WERE STABLE AT 122/77. PRN MORPHINE ADMINISTERED. PATIENT STATED BEING SHORT OF AIR; PULSE OXIMETRY AT 100% ON RA. PROVIDER PAGED/TEXTED. AWAITING ANY NEW ORDERS. WILL REASSESS PAIN LEVEL WHEN INDICATED. AWAITING PLACEMENT FOR PATIENT TO [place] OR [place]. VOICED NO FURTHER NEEDS. WILL CONTINUE TO MONITOR
--- NOTE | 2020-11-20 16:09 | NUR ---
[facility]ED [facility] TO [facility] RECEIVED CONFIRMATION AND ANICETO GERONIMO) SPOKE WITH ADM. FAXED REFERRAL TO [place] SPOKE WITH HUE IN ADM SHE RECEIVED REFERRAL AND CAN CLINICALLY ACCEPT. DP TO FOLLOW.
[2020-11-20 16:50] VITALS: BP 133/76
[2020-11-20 20:35] VITALS: BP 117/81
--- NOTE | 2020-11-21 04:52 | NUR ---
Pt. rested quietly at intervals during the night when checked on during frequent rounds. Ivp pain medication given for generalized pain (see emar) with some relief of pain noted. Bed alarm is on.
[2020-11-21 07:26] VITALS: BP 104/75
[2020-11-21 10:38] LABS: HEMATOCRIT 31.9 % (42.0-52.0)
--- NOTE | 2020-11-21 13:46 | NUR ---
UR NURSE HEARD FROM [facility] IN [facility] OFFICE OF [facility] AND SHE INDICATED THAT PT DOENS'T HAVE MEDICARE. SHE CONFIRMED THAT PT'S SSN IS CORRECT. CM REQUESTED DC CHART WRITER FAX REFERRALS TO THE REMAINING HI CONTRACTED SKILLED FACILITYS FOR REVIEW. SENT REFERRALS TO [facility] [place], [facility], AND [facility]. AWAITING REVIEW. REPEAT COVID TEST ORDERED. CM NOTIFIED PT THAT CM HAD SPOKEN WITH THE DIRECTOR ROSELYN AT HIS APARTMENT [facility] AND SHE IS AWARE THAT HE IS HERE AND PLANS TO GO TO SKILLED. SHE STATED THAT THEY WILL SETTLE UP WITH RENT UPON PT'S RETURN. JEOVANY NOTIFIED PT. CM FOLLOWING REGARDING DC PLANNING.
--- NOTE | 2020-11-21 13:53 | NUR ---
ASSUMED CARE OF PATIENT AT SHIFT CHANGE. ASSESSMENT CHARTED. MEDICATIONS ADMINISTERED PER EMAR; PATIENT PREFERS MEDICATIONS CRUSHED TO TOLERATE DUE TO ESOPHAGITIS. PATIENT REFUSED COLACE STATING "IT'S TOO HARD TO SWALLOW". PATIENT ALSO C/O CONSTIPATION AND NON CARDIAC CHEST PAIN. MIRALAX GIVEN TO PATIENT; 5 MINUTES POST ADMINISTRATION PATIENT C/O "SEEING SPOTS" AND TROUBLE BRATHING. VITAL SIGNS PROVED STABLE BP 128/80 RR 14 T 98.1 AND O2 SAT AT 100% ON RA. PULSE RATE REMAINS IN THE 80'S. PROVIDER PAGED TO UPDATE ON PATIENT STATUS. FREQUENT CHECKS ON PATIENT; EDUCATED ON EFFECTS OPIOIDS HAVE ON GI SYSTEM. PATIENT SEEMS CONFUSED. PATIENT IS STILL AWAITING PLACEMENT TO AN ACCEPTING FACILITY. AWAITING NEW ORDERS AND CONTINUING TO MONITOR PATIENT
[2020-11-21 18:09] VITALS: BP 136/92
[2020-11-21 20:10] VITALS: BP 136/87
--- NOTE | 2020-11-22 05:52 | NUR ---
Pt. rested quietly at intervals during the night when checked on during frequent rounds. He c/o generalized pain and pain medication given (see emar) with some relief noted. Bed alarm is on.
[2020-11-22 07:48] VITALS: BP 119/82
--- NOTE | 2020-11-22 10:54 | NUR ---
Received awake on bed. Due medications given as prescribed. On MS, not on telemetry; no complains and signs of chest pain, crushing sensation and heaviness. On room air. Vital signs stable. On regular diet- tolerating well; no nausea, no vomiting and no abdominal pain noted. Continent of bowel and bladder, using urinal and bedside commode. With SL at R UA- saline locked. Falls bundle in place; up with a cane. Still a/w placement; as per CM- referrals sent; a/w response- Dr Melvin informed and aware. To continue monitoring patient.
[2020-11-22 16:29] VITALS: BP 129/84
[2020-11-22 20:13] VITALS: BP 129/85
[2020-11-23 08:14] VITALS: BP 116/76
--- NOTE | 2020-11-23 08:24 | NUR ---
PT LYING IN BED. VOIDING PER URINAL. TRAMADOL PROVIDING PAIN RELIEF. RESTING COMFORTABLY. NO NEEDS VOICED. CALL LIGHT WITHIN REACH. FREQUENT OBSERVATION.
--- NOTE | 2020-11-23 12:47 | NUR ---
ASSUMED PT CARE THIS AM. PT VSS, A&OX4. PT COMPLAINS OF GENERALIZED PAIN, RESPONDING WELL TO PAIN MEDS GIVEN PER EMAR. PT COOPERATIVE WITH STAFF. MEDS TAKEN CRUSHED WITH WATER. ON ROOM AIR. PTR AMBUALTORY TO THE BEDSIDE COMMODE WITH ASSIST. IV PATENT. MAKES NEEDS KNOWN. FALL PRECAUTIONS IN PLACE.
[2020-11-23 19:28] VITALS: BP 111/77
--- NOTE | 2020-11-24 03:06 | NUR ---
ASSUMED CARE OF PT AT SHIFT CHANGE. PT AOX4 AND LETS NEEDS BE KNOWN. FALL PRECAUTION IN PLACE. PT REPORTED SOME PAIN AND WAS TREATED WITH PRN PAIN MEDS. PT DENIED NAUSEA OR SOA. ASSESSMENT CHARTED. DE PENDING PLACEMENT. PT WAS ABLE TO GET COMFORTABLE AND SLEEP PART OF THE SHIFT. VSS AND NO S/S OF ACUTE DISTRESS. WILL CONTINUE TO MONITOR FOR CHANGES.
[2020-11-24 08:00] VITALS: BP 134/79
--- NOTE | 2020-11-24 12:43 | NUR ---
[facility] [place] CALLED THIS AM AT 7:15 AND INDICATED THAT THEY AREN'T ABLE TO ACCEPT PT FOR ADMISSION. WE CALLED [facility] AND THEY INDICATED THEY ARE FULL AND NOT ABLE TO ACCEPT PT. REACHING OUT TO [facility] TO REVIEW FOR POSSIBLE ADMISSION.
[2020-11-24 14:50] LABS: HEMATOCRIT 32.1 % (42.0-52.0); HEMOGLOBIN 10.2 gm/dL (14.0-18.0); MCHC 31.6 g/dL (28.0-37.0); MCV 79.1 fL (80.0-100.0); RBC 4.06 mil/uL (4.50-6.00); WBC 5.5 thou/uL (4.0-11.0)
--- NOTE | 2020-11-24 14:52 | NUR ---
REFERRAL FAXED TO [facility] ON TUESDAY SPOKE WITH HUE IN ADM SHE CANNOT ACCEPT OON WITH PT'S INSURANCE. FAXED REFERRAL TO [facility] RECEIVED CONFIRMATION LEFT MSG WITH ADM. FAXED REFERRAL TO [facility] RECEIVED CONFIRMATION.
[2020-11-24 15:05] LABS: CALCIUM 8.8 mg/dL (8.5-10.1); CREATININE 0.8 mg/dL (0.7-1.3); TOTAL BILIRUBIN 0.2 mg/dL (0.2-1.0); TOTAL PROTEIN 6.4 g/dL (6.4-8.2)
[2020-11-24 18:43] LABS: URINE BILIRUBIN NEGATIVE (Negative); URINE BLOOD NEGATIVE (Negative); URINE CLARITY CLEAR; URINE COLOR YELLOW; URINE GLUCOSE-RANDOM* NEGATIVE (Negative); URINE KETONES NEGATIVE (Negative); URINE LEUKOCYTES NEGATIVE (Negative); URINE NITRITE POSITIVE (Negative); URINE PROTEIN (DIPSTICK) NEGATIVE (Negative); URINE SPECIFIC GRAVITY 1.015 (1.005-1.035); URINE UROBILINOGEN 0.2 E.U./dl (0.2-1.0)
[2020-11-24 18:52] LABS: BACTERIA >30 Many /HPF (None Seen); CASTS None Seen /LPF (None Seen); SQUAMOUS None Seen /LPF (0-3); URINE RBC None Seen /HPF (0-2); URINE WBC 0-5 Rare /HPF (0-5)
[2020-11-24 18:53] LABS: CRYSTALS None Seen /LPF (None Seen)
--- NOTE | 2020-11-24 19:50 | NUR ---
Assumed pt care at 7am.Pt in bed resting and made needs known.Assessment completed.Vss.Pt c/o generalized bodyache and tramadol po given x2 this shift with partial relief.Dr Melvin here,order noted. Pt still waiting for bed availability at [facility] today.Pt might dc in am when bed available.Fall bundle in place. Will continue to monitor.
[2020-11-24 20:15] VITALS: BP 105/54
--- NOTE | 2020-11-25 06:50 | NUR ---
ASSUMED CARE OF PT AT SHIFT CHANGE. PT AOX4 AND LETS NEEDS BE KNOWN. FALL PRECAUTION IN PLACE. PT REPORTED SOME PAIN AND WAS TREATED WITH PRN PAIN MEDS. PT DENIED NAUSEA OR SOA. PT WAS ABLE TO GET COMFORTABLE AND SLEEP PART OF THE SHIFT. VSS AND NO S/S OF ACUTE DISTRES. WILL CONTINUE TO MONITOR.
[2020-11-25 08:40] VITALS: BP 112/70
[2020-11-25] MEDS ORDERED: KEFLEX500 M1 PO (09:23)
--- NOTE | 2020-11-25 12:31 | NUR ---
Assumed pt care at 7am.Pt in bed resting and watching tv.Assessment completed.vss.Pt c/o generalized body ache and requested for oxycodone tab. It was given with am meds.Dr Melvin and Lee here.No new order noted but covid 19 nasal swab done in prep to dc to snf.Fall bundle in place. Will continue to monitor.
--- NOTE | 2020-11-25 14:13 | NUR ---
LAST PA CONTRACTED FACILITY THAT WAS REVIEWING REFERRAL HAS DECLINED ADMISSION. WE HAD ATTEMPTED ADMISSION TO ALL PA CONTRACTED FACILITIES AND NONE WERE ACCEPTING. WE TRIED A FEW NONE PA CONTRACTED FACILITIES ALL DECLINED BUT PT DOESN'T HAVE MEDICARE. PA WON'T AUTH ACUTE REHAB.. WE SENT REFERRALS TO THEM TOO. GATITO WITH THE PA RECOMMENDED THAT WE TRANSFER PT TO THE PA HOSPITAL. JEOVANY SPOKE WITH HOSPITALIST REGARDING THIS PLAN. JEOVANY CONTACTED PA SECURITY AND PRIVACY CONSULTANT CHARLENE THIS AFTERNOON AT 7625. SHE INDICATED THEY DON'T HAVE ANY OPEN BEDS AT THIS TIME. SHE WILL CONTACT LATER THIS EVENING OR IN THE AM SHOULD A BED OPEN UP. JEOVANY FAXED CLINICAL OVER. PA SECURITY AND PRIVACY CONSULTANT CAN BE CONTACT AT FAX IS . .
[2020-11-25 20:14] VITALS: BP 100/51
--- NOTE | 2020-11-26 02:14 | NUR ---
ASSUMED CARE OF PT AT SHIFT CHANGE. PT IS AOX4 AND LETS NEEDS BE KNAON. FALL PRECAUTION IN PLACE. PT TESTED NEGATIVE FOR COVID-19 ON PREVIOUS SHIFT. PT REPORTED PAIN AND PRNS WERE PROVIDED. PT WAS ABLE TO GET COMFORTABLE AND SLEEP PART OF THE SHIFT. VSS AND NO S/S OF ACUTE DISTRESS. WILL CONTINUE TO MONITOR FOR CHANGES.
[2020-11-26 08:30] VITALS: BP 110/72
--- NOTE | 2020-11-26 13:47 | NUR ---
CM CALLED [facility] THIS AM AND LEFT A VM. CM MET WITH PT AT BEDSIDE AND PROVIDED UPDATE. CM FOLLOWING REGARDING DC PLANNING OF HOPEFUL TRANSFER TO [facility].
[2020-11-26 15:30] VITALS: BP 111/73
--- NOTE | 2020-11-26 15:49 | NUR ---
JEVOANY SPOKE WITH CHARLENE FLAT CUTTER AT [facility] THIS AFTERNOON AND SHE INDICATED THEY ARE STILL FULL NO BEDS OPEN TO ACCEPT PT THIS DAY. CM TO TRY BACK IN THE AM. CM TO FOLLOW INDICATED WITH DC PLANNING.
--- NOTE | 2020-11-26 18:14 | NUR ---
Assumed pt care at 7am.Pt in bed most of the time eating and drinking coffee as needed.Assessment completed.vss.Pt always c/o generalized pain that treated with tramadol.Pt has good appetite and adequate u/o.Dr Melvin here,no new order noted.Cm still looking for bed placement.Later this afternoon around 1530,pt requested to be taken outside the hospital in for fresh air.Dr Melvin notified and she okay pt request.Towards end of shift,pt wanted call made to [place] to comfirm cocktail frequency from prn to scheduled.Rn called but the office has been closed.Pt informed.Message sent to pharmacy for prn dose tonite.Will continue to monitor.
[2020-11-26 20:04] VITALS: BP 101/60
--- NOTE | 2020-11-27 03:20 | NUR ---
PT CARE ASSUMED WITH PT IN BED SLEEPING.PT IS A/O X4.PT IS UP WITH X1 ASSIST TO BEDSIDE COMMODE.PT C/O PAIN AND PAIN MANAGED WITH TRAMADOL.IV ACCESS ON RT UA SL.PT TAKES MEDS CRUSHED WITH WATER .PT USES URINAL.WILL CONTINUE TO MONITOR
[2020-11-27 08:39] VITALS: BP 110/70
--- NOTE | 2020-11-27 12:20 | NUR ---
[facility] AND [facility]. CM SPOKE ELEAZAR CHANG THIS AM. SHE INDICATED THAT THEY ARE ON DIVERSION AND STILL HAVE NO OPEN BEDS TO ACCEPT PT TO. CM NOTIFIED PT AND PHYSICIAN. CM MET WITH PT AT BEDSIDE THIS DAY. PT INDICATED THAT HE WANTED TO DC [facility] TODAY. CM INDICATED THAT OF RIGHT NOW CARE TEAM ARE STILL INDICATING THAT PT NEEDS CONTINUES SERVICES AND THAT DC TO HOME WOULD NOT BE A SAFE DC BUT THAT CM WOULD NOTIFY PHYSICIAN OF HIS EXPRESSED PREFERENCE. DR. REYES MET WITH PT AGAIN AND REITERATED THE ABOVE. PT IS AGREEABLE TO REMAIN HERE AND A[facility] TRAN[facility] TO [facility] ONCE [facility] B[facility]AI[facility]. CM TO FOLLOW INDICATED WITH DC PLANNING.
--- NOTE | 2020-11-27 14:56 | NUR ---
PT A&OX4, VSS, GENERAL PAIN. PATIENT REQUESTING GI COCKTAIL BEFORE MEALS. AWAITING PLACEMENT ON PATIENT. IV RIGHT UPPER ARM PATENT. NO SIGNS OF DISTRESS. WILL CONTINUE TO MONITOR.
[2020-11-27 15:53] VITALS: BP 123/84
[2020-11-27 19:49] VITALS: BP 110/66
--- NOTE | 2020-11-28 01:37 | NUR ---
PT IS A/O X4 AND IS UP WITH ASSISTANCE. ROOM AIR. VSS. AFEBRILE. USES A URINAL AT THE BEDSIDE. NO BM THIS SHIFT.MEDICATIONS GIVEN PER MAR. PT IS PLEASANT AND COOPERATIVE. C/O CHRONIC PAIN. PRN PAIN MEDICATIONS GIVEN DIRECTED. FALL PRECAUTIONS IN PLACE, CALL LIGHT IS WITHIN REACH. WILL CONTINUE TO MONITOR.
--- NOTE | 2020-11-28 09:27 | NUR ---
JEOVANY RECEIVED PC FROM [facility] RUCK[facility] AT [facility] THIS DAY. SHE SUGGESTED WE TRY TO SEND REFERRALS TO GET PT TO AN AL SETTING WITH HH AND POSSIBLE PD SERVICES THROUGH [facility]. SHE RECOMMENDED THAT [facility] [place], AND [facility]. REEFRRALS TO BE SENT.
--- NOTE | 2020-11-28 12:42 | NUR ---
PT A&OX4, VSS, GENERAL PAIN. PAIN MEDICATION GIVEN. PATIENT WORKED WITH OT. PATIENT ROOM AIR, NO SIGNS OF DISTRESS. PLAN IS ASSISTED LIVING, AWAITING PLACEMENT. PATIENT EATING AND DRINKING. WILL CONTINUE TO MONITOR.
[2020-11-28 20:00] VITALS: BP 113/72
--- NOTE | 2020-11-29 04:29 | NUR ---
PT HAD A BM AT START OF SHIFT.PT DENIED PAIN SO FAR.PT WITH ESOPHIGITIS, MEDS CRUSHED PER PT'S REQUEST.PT ALERT,CALM AND PLEASANT.VSS.NO [facility] FROM [facility] REGARDING [facility].PT EAGER TO DC.UP WITH ASSIST X1.PT SLEEPING ON HIS BED AT THIS TIME.SZ PRECAUTION IN PLACE.CALL LIGHT WITHIN REACH.
[2020-11-29 09:33] VITALS: BP 101/64
--- NOTE | 2020-11-29 12:00 | NUR ---
Assumed care of pt at 0700. Prn pain meds administered per pt request. SBA to the bedside commode. Called [facility] to check on bed availability. Left message. Awaiting call. Call light within reach. Will continue to monitor.
[2020-11-29 13:29] LABS: ABSOLUTE NEUTROPHILS 2.8 thou/uL (1.4-8.2); BASOPHILS 0.3 % (0.0-2.0); EOSINOPHILS 4.1 % (0.0-3.0); HEMATOCRIT 29.1 % (42.0-52.0); HEMOGLOBIN 9.4 gm/dL (14.0-18.0); LYMPHOCYTES 44.7 % (24.0-44.0); MCH 24.9 pg (26.0-34.0); MCHC 32.4 g/dL (28.0-37.0); MONOCYTES 10.2 % (1.0-8.0); PLATELET COUNT 348 thou/uL (150-400); POLYS 40.7 % (36.0-66.0); RBC 3.78 mil/uL (4.50-6.00); WBC 6.8 thou/uL (4.0-11.0)
[2020-11-29 13:55] LABS: CREATININE 0.9 mg/dL (0.7-1.3); MAGNESIUM 1.8 mg/dL (1.8-2.4); POTASSIUM 4.1 mmol/L (3.5-5.1); TOTAL BILIRUBIN 0.2 mg/dL (0.2-1.0); TOTAL PROTEIN 6.7 g/dL (6.4-8.2)
[2020-11-29 14:14] LABS: ANISOCYTOSIS 2+; OVALOCYTES FEW
== END 2020-11-29 15:21 | disposition left against medical advice (07) | DRG 100 ==
LOC: ER 09:59 → ICU 12:37 → EROBS 12:37 → ICU 20:10 → 4W 11-15 08:20
PROVIDERS: Emergency Medicine; Hospitalist; Internal Medicine; Internal Medicine Geriatric Medicine; Psychiatry & Neurology Psychiatry; ADMIT Internal Medicine; ATTEND Internal Medicine
DX: G40.909 Epilepsy, unspecified, not intractable, without status epilepticus (principal); E43 Unspecified severe protein-calorie malnutrition; F10.239 Alcohol dependence with withdrawal, unspecified; K86.1 Other chronic pancreatitis; E87.1 Hypo-osmolality and hyponatremia; N39.0 Urinary tract infection, site not specified; Z68.1 Body mass index [BMI] 19.9 or less, adult; F32.9 Major depressive disorder, single episode, unspecified; F41.9 Anxiety disorder, unspecified; I10 Essential (primary) hypertension; G89.29 Other chronic pain; M54.5 Low back pain; K20.90 Esophagitis, unspecified without bleeding; E87.6 Hypokalemia; M54.9 Dorsalgia, unspecified; F17.210 Nicotine dependence, cigarettes, uncomplicated; M54.31 Sciatica, right side; M50.323 Other cervical disc degeneration at C6-C7 level; Z20.822 Contact with and (suspected) exposure to COVID-19; E83.42 Hypomagnesemia; F39 Unspecified mood [affective] disorder; Z53.29 Procedure and treatment not carried out because of patient's decision for other reasons; Z86.718 Personal history of other venous thrombosis and embolism; Z86.711 Personal history of pulmonary embolism; Z88.8 Allergy status to other drugs, medicaments and biological substances; Z87.311 Personal history of (healed) other pathological fracture
CPT/HCPCS: 10045; 10047; 10078

== ENCOUNTER 2020-12-02 15:16 | Emergency (ER) | payer OTHER ==
[~2020-12-02] VITALS: Ht 185.4 cm; Wt 63.5 kg
[~2020-12-02 15:16] MED LIST changes: +CLONAZEPAM 0.50.5 M1 PO; +COLACE100 MG PO; +CYMBALTA30 MG PO; +K-DUR10 MEQ PO; +KEFLEX500 M1 PO; +MAGOX 400400 MG PO; +TRAMADOL 50 MG50 MG PO
[2020-12-02 17:15] LABS: HEMATOCRIT 31.9 % (42.0-52.0); MCHC 31.5 g/dL (28.0-37.0); MCV 76.3 fL (80.0-100.0); RBC 4.18 mil/uL (4.50-6.00); RDW 22.9 % (10.5-14.5)
[2020-12-02 17:40] VITALS: BP 147/91
== END 2020-12-02 17:38 | disposition home or self-care (01) ==
LOC: ER 15:16
PROVIDERS: Nurse Practitioner
DX: M54.2 Cervicalgia (principal); R51.9 Headache, unspecified; M54.5 Low back pain; M54.6 Pain in thoracic spine; I10 Essential (primary) hypertension; F17.210 Nicotine dependence, cigarettes, uncomplicated; Z86.718 Personal history of other venous thrombosis and embolism; Z79.899 Other long term (current) drug therapy; Z88.8 Allergy status to other drugs, medicaments and biological substances; W18.39XA Other fall on same level, initial encounter; Y93.89 Activity, other specified; Y92.89 Other specified places as the place of occurrence of the external cause; Y99.8 Other external cause status

== ENCOUNTER 2020-12-14 16:46 | Emergency (ER) | payer OTHER ==
[~2020-12-14] VITALS: Ht 162.6 cm; Wt 54.4 kg
[2020-12-14 18:05] LABS: ABSOLUTE NEUTROPHILS 2.6 thou/uL (1.4-8.2); BASOPHILS 1.9 % (0.0-2.0); EOSINOPHILS 2.3 % (0.0-3.0); HEMATOCRIT 35.9 % (42.0-52.0); HEMOGLOBIN 11.3 gm/dL (14.0-18.0); LYMPHOCYTES 47.9 % (24.0-44.0); MCH 24.5 pg (26.0-34.0); MCHC 31.5 g/dL (28.0-37.0); MCV 77.9 fL (80.0-100.0); MONOCYTES 4.9 % (1.0-8.0); PLATELET COUNT 390 thou/uL (150-400); RBC 4.61 mil/uL (4.50-6.00); RDW 25.9 % (10.5-14.5)
[2020-12-14 18:12] LABS: ANION GAP 12 mmol/L (7-16); BUN 5 mg/dL (7-18); CALCIUM 7.8 mg/dL (8.5-10.1); CHLORIDE 106 mmol/L (98-107); CO2 29 mmol/L (21-32); CREATININE 0.9 mg/dL (0.7-1.3); GLUCOSE 93 mg/dL (74-106); POTASSIUM 3.4 mmol/L (3.5-5.1); SODIUM 147 mmol/L (136-145)
[2020-12-14 18:23] LABS: ALBUMIN 3.4 g/dL (3.4-5.0); LIPASE 92 U/L (73-393); SALICYLATE < 2.8 mg/dL (2.8-20.0); SGOT 23 U/L (15-37); SGPT 20 U/L (16-63); TOTAL BILIRUBIN 0.5 mg/dL (0.2-1.0); TOTAL PROTEIN 7.4 g/dL (6.4-8.2)
[2020-12-14 18:26] LABS: TROPONIN-I <0.06 ng/mL (<0.06)
[2020-12-14 18:29] LABS: APTT 22.5 Seconds (24.5-32.8); OVALOCYTES 1+; PROTIME 10.6 Seconds (9.3-11.4); TARGET CELLS 1+; TEARDROPS FEW
[2020-12-14 18:30] LABS: ANISOCYTOSIS SLIGHT; LARGE PLATELETS RARE; SCHISTOCYTES 1+
[2020-12-14 18:31] LABS: POLYCHROMASIA 1+
[2020-12-14 18:36] LABS: URINE BILIRUBIN NEGATIVE (Negative); URINE BLOOD NEGATIVE (Negative); URINE CLARITY CLEAR; URINE COLOR YELLOW; URINE GLUCOSE-RANDOM* NEGATIVE (Negative); URINE KETONES NEGATIVE (Negative); URINE LEUKOCYTES-REFLEX NEGATIVE (Negative); URINE NITRITE-REFLEX NEGATIVE (Negative); URINE PROTEIN (DIPSTICK) NEGATIVE (Negative); URINE SPECIFIC GRAVITY 1.015 (1.005-1.035)
[2020-12-14 18:46] LABS: AMP/METHAMP Negative (Negative); BARBITURATES Negative (Negative); BENZODIAZEPINES Negative (Negative); COCAINE Negative (Negative); METHADONE Negative (Negative); OPIATES Negative (Negative); PCP Negative (Negative)
[2020-12-15 04:16] VITALS: BP 155/98
--- NOTE | 2020-12-15 07:50 | EKG ---
[place] [address] [facility] [place] [address] ELECTROCARDIOGRAM REPORT Name: GIL VELEZ [id number] Admission: 12/14/20 Attend Phys: Discharge: 12/15/20 Date of : 57 Report #: [id number] [facility] ED Test Date: 2020-12-14 Test Time: 17:16:20 Pat Name: GIL VELEZ Department: Room: Gender: M Maintenance Of Way Clerk: MARY MUNOZ : 1955 Requested By: Hamilton Saavedra Order Number: [id number] MD: Gil Gonzales Measurements Intervals [place] Rate: 95 P: 35 AR: 149 QRS: 18 QRSD: 104 T: 61 QT: 377 QTc: 474 Interpretive Statements Sinus rhythm Borderline low voltage, extremity leads Compared to ECG 11/12/2020 10:29:52 No significant changes Electronically Signed On 12-15-2020 7:50:36 CDT by Gil Gonzales [email or web address] <ELECTRONICALLY SIGNED> By: Gil Gonzales MD, [facility] 12/15/20 0750 1716 1716 Gil Gonzales MD, FACC /EPI
--- NOTE | 2020-12-15 07:51 | EKG ---
[place] [address] [address] [facility] [place] [address] ELECTROCARDIOGRAM REPORT Name: GIL VELEZ [id number] Admission: 12/14/20 Attend Phys: Discharge: 12/15/20 Date of : 57 Report #: [id number] [facility] ED Test Date: 2020-12-15 Test Time: 02:02:54 Pat Name: GIL VELEZ Department: Room: Gender: M Substation Electrician: kalyan : 1955 Requested By: Valerio Heredia Order Number: [id number] MD: Gil Gonzales Measurements Intervals [place] Rate: 85 P: 66 AL: 143 QRS: 15 QRSD: 99 T: 63 QT: 405 QTc: 482 Interpretive Statements Sinus rhythm Low voltage, extremity leads Borderline prolonged QT interval Compared to ECG 12/14/2020 17:16:20 No significant changes Electronically Signed On 12-15-2020 7:51:20 CDT by Gil Gonzales [email or web address] <ELECTRONICALLY SIGNED> By: Gil Gonzales MD, [facility] 12/15/20 0751 020 0202 Gil Gonzales MD, FACC /EPI
== END 2020-12-15 04:21 | disposition home or self-care (01) ==
LOC: ER 16:46
PROVIDERS: Emergency Medicine
DX: G40.89 Other seizures (principal); M54.5 Low back pain; R51.9 Headache, unspecified; I10 Essential (primary) hypertension; F17.210 Nicotine dependence, cigarettes, uncomplicated; Z79.899 Other long term (current) drug therapy; Z88.8 Allergy status to other drugs, medicaments and biological substances; Z20.822 Contact with and (suspected) exposure to COVID-19